=== PATIENT | female | born 1970 | race Caucasian/White ===

== ENCOUNTER 2020-10-29 07:40 | Emergency (ER) | payer OTHER, MEDICAID, SELFPAY ==
--- NOTE | ~2020-10-29 | XR_ITS ---
EXAMINATION: XR ABDOMEN KUB CLINICAL INDICATION: Constipation COMPARISON: Abdominal CT scan of March 06, 2017 TECHNIQUE: AP view of the abdomen. FINDINGS: No dilated loops of large or small bowel are evident. No significant stool burden is identified with moderate amount of stool seen within the transverse colon and right colon.. Lap band seen in place. The angle of the lap band is difficult to assess due to the angle of the image. No significant bony abnormality is appreciated. XR/XR KUB IMPRESSION: No significant stool burden appreciated. No evidence of ileus or obstruction.
[2020-10-29 09:06] VITALS: BP 129/84; PULSE 106; RESP 18; TEMP 37.1; O2SAT 98; BMI 25.2
--- NOTE | 2020-10-29 09:38 | ED_ITS ---
HPI - Abdominal Pain General Chief Complaint: Abdominal Pain Stated Complaint: constipation Time Seen by Provider: 10/29/20 09:38 Source: patient Mode of arrival: ambulatory Limitations: no limitations History of Present Illness HPI narrative: Last week she was constipated for a week, she took ecslax with some improvement. Still vomiting. patient still feeling like she can't eat and she feels weak. patient with lower back pain. patient had gastric lap band. CT of abdomen 10/17 done at [facility] showed no masses or dilated colon MD elicited complaint: abdominal pain Pertinent past history: constipation Onset (ago): day(s) Pain Consistency: constant Severity: moderate Quality: cramping Radiation: none Migration to: no migration Associated symptoms: nausea and vomiting Related Data Allergies Allergy/AdvReac Type Severity Reaction Status Date / Time prednisone Allergy Unknown severe Uncoded 10/29/20 09:05 headache sunflower seeds Allergy Unknown oral Uncoded 10/29/20 09:05 swelling Review of Systems Constitutional: Reports no additional constitutional complaints Eyes: Reports no additional eye complaints Denies dizziness Cardiovascular: Reports no additional cardiovascular complaints Respiratory: Reports as per HPI Gastrointestinal: Reports no additional gastrointestinal complaints Genitourinary: Reports no additional female genitourinary complaints Musculoskeletal: Reports no additional musculoskeletal complaints Skin/Breast: Denies rash Reports system reviewed and no additional complaints, except as documented, Denies dizziness and Denies Sensory deficit (Neuro) Psychiatric: Denies anxiety Physical Exam Vital Signs: Vital Signs: Last Vital Signs Temp 98.3 F 10/29/20 10:37 Pulse 83 10/29/20 10:37 Resp 18 10/29/20 09:06 BP 120/84 10/29/20 10:37 Pulse Ox 99 10/29/20 10:37 Body Mass Index 25.2 Const: General: healthy appearing Nutritional Appearance: average body habitus Orientation/consciousness: oriented to person and patient oriented x3 Limitations: no limitations HENMT: Head: Yes normal to inspection Ears: external ears normal General nose exam: Normal external nose present Mouth: Normal oral and palatal mucosa present and oropharynx normal Throat: Yes posterior oropharynx normal Eyes: General: appearance normal, both eyes and all related structures Neck: Other: supple Neck: Yes normal visual inspection Chest: Chest palpation & inspection: normal inspection of the chest Resp: Auscultation: clear to auscultation bilaterally Cardio: Jugular venous distension: no JVD Rate: regular rate Rhythm: regular rhythm Heart sounds: S1 normal heart sound present and S2 normal heart sound present GI: Inspection: Yes normal to inspection Palpation (GI): Soft to palpation, nontender and No hepatosplenomegaly present Auscultation: normal bowel sounds : General: Yes no CVA tenderness Back/Spine/Pelvis: Back: no CVA tenderness Skin: General skin exam: no rashes or lesions noted Neuro: General: oriented to person and patient oriented x3 Cranial nerves: Yes CN's II-XII intact bilaterally Motor exam (neuro): 5/5 motor strength present throughout Sensory Exam: No Sensory deficit (Neuro) Extrem: General: Yes normal to inspection Psych: Appearance: grossly normal Course Reevaluation(s) Reevaluation #1: sugar is down. Will feed patient Time: 11:21 Reevaluation #2: repeat sugar 185 will dc home Time: 15:27 MDM - Abdominal Pain Lab Data Result diagrams: 10/29/20 10:23 10/29/20 10:23 Labs: Lab Results 10/29/20 10/29/20 10/29/20 Range/Units 10:23 10:23 13:25 WBC 6.9 (4.8-10.8) X10*3/uL RBC 5.59 H (4.20-5.50) X10*6/uL Hgb 16.0 (12.0-16.0) g/dl Hct 49.1 H (37-47) % MCV 87.8 (80-98) fL MCH 28.6 (27.0-33.0) pg MCHC 32.6 (31.0-35.0) g/dl RDW 13.3 (11.0-16.0) % Plt Count 333 (160-400) X10*3/uL MPV 9.8 (9.4-12.3) fL Immature Gran % (Auto) 0.3 (0.0-0.4) % Neut % (Auto) 62.9 (45-73) % Lymph % (Auto) 26.9 (20-40) % [place] % (Auto) 6.8 (2-11) % Eos % (Auto) 1.6 (0-4) % Baso % (Auto) 1.5 (0-2) % Lymph # (Auto) 1.9 (1.2-4.9) X10*3/uL [place] # (Auto) 0.5 (0.1-1.2) X10*3/uL Eos # (Auto) 0.1 (0.0-0.4) X10*3/uL Baso # (Auto) 0.1 (0.0-0.2) X10*3/uL Abs Immat Gran (auto) 0.02 (0.00-0.03) X10*3/uL Absolute Neuts (auto) 4.3 (2.0-8.3) X10*3/uL Absolute Nucleated RBC 0.000 (0.0-0.012) X10*3/uL Nucleated RBC % (auto) 0.0 (0.0-0.2) /100WBC Sodium 139 (135-145) mmol/L Potassium 4.5 (3.3-5.1) mmol/L Chloride 105 (96-108) mmol/L Carbon Dioxide 18 L (22-29) mmol/L Anion Gap 21 H (12-20) BUN 12 (9-16) mg/dL Creatinine 0.98 (0.5-1.4) mg/dL Estim Creat Clear Calc 59.0 Estimated GFR 60 POC Glucose 45 L* (60-115) mg/dL Random Glucose 57 L* (60-115) mg/dL Calcium 9.6 (8.4-10.2) mg/dL Total Bilirubin 0.5 (0.0-1.0) mg/dL Direct Bilirubin 0.3 (0.0-0.5) mg/dL AST 17 (5-31) U/L ALT 11 (0-31) U/L Alkaline Phosphatase 73 (39-117) U/L Total Protein 7.6 (6.5-8.0) g/dL Albumin 4.7 (3.5-5.0) g/dL Lipase 21 (8-78) U/L 10/29/20 10/29/20 Range/Units 14:11 15:21 WBC (4.8-10.8) X10*3/uL RBC (4.20-5.50) X10*6/uL Hgb (12.0-16.0) g/dl Hct (37-47) % MCV (80-98) fL MCH (27.0-33.0) pg MCHC (31.0-35.0) g/dl RDW (11.0-16.0) % Plt Count (160-400) X10*3/uL MPV (9.4-12.3) fL Immature Gran % (Auto) (0.0-0.4) % Neut % (Auto) (45-73) % Lymph % (Auto) (20-40) % [place] % (Auto) (2-11) % Eos % (Auto) (0-4) % Baso % (Auto) (0-2) % Lymph # (Auto) (1.2-4.9) X10*3/uL [place] # (Auto) (0.1-1.2) X10*3/uL Eos # (Auto) (0.0-0.4) X10*3/uL Baso # (Auto) (0.0-0.2) X10*3/uL Abs Immat Gran (auto) (0.00-0.03) X10*3/uL Absolute Neuts (auto) (2.0-8.3) X10*3/uL Absolute Nucleated RBC (0.0-0.012) X10*3/uL Nucleated RBC % (auto) (0.0-0.2) /100WBC Sodium (135-145) mmol/L Potassium (3.3-5.1) mmol/L Chloride (96-108) mmol/L Carbon Dioxide (22-29) mmol/L Anion Gap (12-20) BUN (9-16) mg/dL Creatinine (0.5-1.4) mg/dL Estim Creat Clear Calc Estimated GFR POC Glucose 185 H 184 H (60-115) mg/dL Random Glucose (60-115) mg/dL Calcium (8.4-10.2) mg/dL Total Bilirubin (0.0-1.0) mg/dL Direct Bilirubin (0.0-0.5) mg/dL AST (5-31) U/L ALT (0-31) U/L Alkaline Phosphatase (39-117) U/L Total Protein (6.5-8.0) g/dL Albumin (3.5-5.0) g/dL Lipase (8-78) U/L Imaging Data Abdominal x-ray: Radiologist's impression: IMPRESSION: No significant stool burden appreciated. ? No evidence of ileus or obstruction. ? Discharge Plan Discharge Clinical Impression: Hypoglycemia Patient Disposition: Home, Self-Care Instructions: Non-diabetic Hypoglycemia (ED) Referrals: Physician,Unknown [Physician] - 5 days [facility] Social History Social History Advance Directives: No Advance Directives Information Provided: No Patient : No
[2020-10-29 10:30] LABS: MANUAL DIFF FLAG NO
[2020-10-29 10:31] LABS: Basophils Absolute Auto 0.1 X10*3/uL (0.0-0.2); Basophils Percent Auto 1.5 % (0-2); Eosinophils Absolute Auto 0.1 X10*3/uL (0.0-0.4); Eosinophils Percent Auto 1.6 % (0-4); Hematocrit 49.1 % (37-47); Imm Gran Abs Auto 0.02 X10*3/uL (0.00-0.03); Imm Gran Pct Auto 0.3 % (0.0-0.4); Lymphocytes Absolute Auto 1.9 X10*3/uL (1.2-4.9); Lymphocytes Percent Auto 26.9 % (20-40); Mean Corpuscular HGB Conc 32.6 g/dl (31.0-35.0); Mean Corpuscular Hemoglobin 28.6 pg (27.0-33.0); Mean Corpuscular Volume 87.8 fL (80-98); Mean Platelet Volume 9.8 fL (9.4-12.3); Monocytes Absolute Auto 0.5 X10*3/uL (0.1-1.2); Monocytes Percent Auto 6.8 % (2-11); Neutrophils Absolute Auto 4.3 X10*3/uL (2.0-8.3); Neutrophils Percent Auto 62.9 % (45-73); Platelet Count 333 X10*3/uL (160-400); Red Blood Count 5.59 X10*6/uL (4.20-5.50); Red Cell Distribution Width 13.3 % (11.0-16.0); White Blood Count 6.9 X10*3/uL (4.8-10.8)
[2020-10-29 10:37] VITALS: BP 120/84; PULSE 83; TEMP 36.8; O2SAT 99
[2020-10-29] MEDS: 0.9 % Sodium Chloride 1,000 ML 999 ML IVCONT ×2 (10:48→11:11)
[2020-10-29] MEDS: Acetaminophen 325 MG TABLET 975 MG PO (11:09)
[2020-10-29 11:10] LABS: Alanine Aminotransferase 11 U/L (0-31); Albumin Level 4.7 g/dL (3.5-5.0); Alkaline Phosphatase 73 U/L (39-117); Anion Gap 21 (12-20); Aspartate Amino Transferase 17 U/L (5-31); Bilirubin Direct 0.3 mg/dL (0.0-0.5); Bilirubin Total 0.5 mg/dL (0.0-1.0); Blood Urea Nitrogen 12 mg/dL (9-16); Calcium 9.6 mg/dL (8.4-10.2); Carbon Dioxide 18 mmol/L (22-29); Chloride 105 mmol/L (96-108); Estimated Glomerular Filt Rate 60; Glucose Random 57 mg/dL (60-115); Lipase 21 U/L (8-78); Potassium 4.5 mmol/L (3.3-5.1); Sodium 139 mmol/L (135-145); Total Protein 7.6 g/dL (6.5-8.0)
[2020-10-29 13:29] LABS: Glucose, Whole Blood 45 mg/dL (60-115)
[2020-10-29 14:15] LABS: Glucose, Whole Blood 185 mg/dL (60-115)
[2020-10-29 15:27] LABS: Glucose, Whole Blood 184 mg/dL (60-115)
== END 2020-10-29 15:56 | disposition home or self-care (01) ==
PROVIDERS: Emergency Provider Emergency Medicine; PCP Hospitalist
DX: E16.2 Hypoglycemia, unspecified (principal); R10.9 Unspecified abdominal pain; K59.00 Constipation, unspecified; Z79.899 Other long term (current) drug therapy
CPT/HCPCS: 36415; 74018; 80048; 80076; 82947; 83690; 85025; 96361; 96374; 96375; 99284; J2405

== ENCOUNTER 2021-03-23 07:01 | Emergency (ER) | payer OTHER, SELFPAY ==
--- NOTE | ~2021-03-23 | XR_ITS ---
EXAMINATION: XR SACROILIAC JOINTS CLINICAL INFORMATION: Pain in the left SI joint COMPARISON: Abdominal x-ray October 2020 TECHNIQUE: 3 views of the sacroiliac joints FINDINGS: Bones and soft tissues are normal. No fracture. Alignment is anatomic. Sacroiliac joint spaces are well-maintained without erosions or surrounding sclerosis. XR/XR sacroiliac joint 1-2V IMPRESSION: Normal sacroiliac joints.
[2021-03-23 07:18] VITALS: BP 125/67; PULSE 99; RESP 18; TEMP 36.3; O2SAT 98; BMI 25.6
[2021-03-23 07:59] LABS: COVID-19 Test Negative (Negative)
--- NOTE | 2021-03-23 08:31 | ED.BACK ---
HPI - Back Pain/Injury General Chief Complaint: Back Pain/Injury Stated Complaint: L LOWER BACK PAIN Time Seen by Provider: 03/23/21 08:27 Source: patient Mode of arrival: ambulatory Limitations: no limitations History of Present Illness HPI Narrative: 50-year-old female otherwise healthy came in for evaluation of left low back pain. Pain is localized to the left lower back area, started 3-4 days ago, no known injury, patient also declined any dysuria or frequent urination. No fever, no recent strenuous activity. Patient woke up with the pain 4 days ago which is localized to the left lower back, with no radiation, pain is exacerbated by movement, pain is improved with rest. Never had this pain in the past. Related Data Previous Rx's Medication Instructions Recorded nitrofurantoin 100 mg PO BID #14 cap 03/23/21 monohydrate/macrocrystals 100 mg capsule (Macrobid) Allergies Allergy/AdvReac Type Severity Reaction Status Date / Time prednisone Allergy Unknown severe Uncoded 03/23/21 07:17 headache sunflower seeds Allergy Unknown oral Uncoded 03/23/21 07:17 swelling Review of Systems Review of Systems: All other systems are reviewed and are negative Constitutional: Reports as per HPI and Reports no additional constitutional complaints Eyes: Reports as per HPI and Reports no additional eye complaints Reports system reviewed and no additional complaints, except as documented Cardiovascular: Reports as per HPI and Reports no additional cardiovascular complaints Respiratory: Reports as per HPI and Reports no additional respiratory complaints Gastrointestinal: Reports as per HPI and Reports no additional gastrointestinal complaints Genitourinary: Reports no additional female genitourinary complaints Musculoskeletal: Reports no additional musculoskeletal complaints Skin/Breast: Reports system reviewed and no additional complaints, except as docu Psychiatric: Reports no additional psychiatric complaints Endocrine: Reports no additional endocrine complaints Hematologic/Lymphatic: Reports no additional hematologic/lymphatic complaints Allergic/Immunologic: Reports no additional allergic/immunologic complaints Reports system reviewed and no additional complaints, except as documented and Reports Abnormal speech present [facility] Social History Social History Advance Directives: No Advance Directives Information Provided: Yes Physical Exam Vital Signs: Vital Signs: Last Vital Signs Temp 97.3 F 03/23/21 07:18 Pulse 99 03/23/21 07:18 Resp 18 03/23/21 07:18 BP 125/67 03/23/21 07:18 Pulse Ox 98 03/23/21 07:18 BMI result Body Mass Index 25.6 Vital signs have been reviewed as appeared to be correct. Blood pressure normal. Heart rate normal. Respiration rate normal. Temperature normal. Oxygen saturation normal. Appearance: Alert. Oriented X3. No acute distress. Head: Normal external exam. Normocephalic. Atraumatic. No [place] signs noted. No raccoon eyes noted Eyes: PERRLA. EOMI. Conjunctiva and sclera normal. Eyelids normal. ENT: TM's Normal. Pharynx normal. Uvula midline. Moist mucous membranes. No trismus noted. No drooling noted. No muffled voice noted. Neck: Normal inspection. Neck supple. FROM. No adenopathy. Thyroid Normal. No meningeal signs. No neck mass noted. CVS: Normal heart rate and rhythm. Heart sound normal. No murmurs noted. Pulses normal throughout. Respiratory: No respiratory distress. Painless inspiration. Breath sounds normal. No wheezes/rales/rhonchi noted. Chest nontender. No accessory muscle usage noted or decreased air movement noted. Abdomen: Soft and nontender. Bowel sounds normal in all 4 quadrants. No distention noted. No organomegaly noted. No visible injury noted. Back: Pain is localized over left SI joint, no step-off, no deformity. CVA tenderness. Full range of motion noted. Skin: Skin warm and dry. Normal skin color. Normal skin turgor. No rashes/lesions/lacerations noted. Extremities: No lower extremity edema. Extremities exhibit normal range of motion. Extremities nontender. Neuro: Oriented X 3. Cranial nerve exam: II-XII are grossly intact No motor deficit. No sensory deficit. Reflexes normal. Course Course Course Narrative: Assessment and plan. 50-year-old female came in for evaluation of left lower back pain, physical exam is consistent with left sacroiliitis. Will recommend heating pad, rest, NSAIDs, follow-up with ortho. Patient also have infected urine on the urine analysis will start the patient on Macrobid for 1 week with encouraged to drink plenty of fluids. MDM - Back Pain/Injury Medical Records Attestation: I reviewed the patient's medical records. Lab Data Attestation: I reviewed the patient's lab results. Labs: Lab Results 03/23/21 03/23/21 03/23/21 Range/Units 07:33 08:54 08:54 Urine Color YELLOW Urine Appearance HAZY Urine pH 5.5 (5.0-8.0) Ur Specific [place] >= 1.030 H (1.005-1.025) Urine Protein TRACE (NEG-TRACE) MG/DL Urine Glucose (UA) NEG (NEG) MG/DL Urine Ketones 5 (NEG) MG/DL Urine Blood NEG (NEG) Urine Nitrite NEG (NEG) Ur Leukocyte Esterase 1+ H (NEG) Urine RBC 0-2 (0) /HPF Urine WBC 10-14 H (0-4) /HPF Ur Squamous Epith Cells 2+ /LPF Urine Bacteria TRACE /LPF Urine Mucus 3+ /LPF Urine Test NEGATIVE (NEGATIVE) COVID-19 ([facility]NALIA) Negative (Negative) COVID-19 Clin Com See Note Discharge Plan Discharge Clinical Impression: Sacroiliitis, Urinary tract infection Patient Disposition: Home, Self-Care Instructions: Urinary Tract Infection in Women (ED), Sacroiliitis (ED) Additional Instructions: Wrist, heating pad to the left low back, ibuprofen/or Advil 200 mg tablet every 6 hours if needed for pain. Follow-up with our orthopedic clinic Dr. Guevara. Prescriptions: New nitrofurantoin monohyd/m-cryst [Macrobid] 100 mg capsule 100 mg PO BID Qty: 14 RF: 0 Referrals: Dav Guevara MD [Physician] - 1 week
[2021-03-23 09:20] LABS: Appearance Urine HAZY; Color Urine YELLOW; Glucose Urine UA NEG (NEG); Leukocyte Esterase Urine 1+ (NEG); Nitrite Urine NEG (NEG); PH 5.5 (5.0-8.0); Specific Gravity - Urine >= 1.030 (1.005-1.025); UACC Culture Trigger YES; Urine Blood NEG (NEG); Urine Ketones 5 MG/DL (NEG); Urine Protein TRACE MG/DL (NEG-TRACE)
[2021-03-23 09:22] LABS: UPreg QC Valid YES; Urine Pregnancy NEGATIVE (NEGATIVE)
[2021-03-23 09:28] LABS: Mucus Urine 3+ /LPF; Squamous Epithelial Cell Urine 2+ /LPF
[2021-03-23 09:29] LABS: Bacteria Urine TRACE /LPF; RBC Urine 0-2 /HPF (0)
== END 2021-03-23 10:07 | disposition home or self-care (01) ==
PROVIDERS: Emergency Provider Emergency Medicine; PCP Hospitalist
DX: M46.1 Sacroiliitis, not elsewhere classified (principal); N39.0 Urinary tract infection, site not specified; M54.50 Low back pain, unspecified; Z20.822 Contact with and (suspected) exposure to COVID-19; Z79.899 Other long term (current) drug therapy
CPT/HCPCS: 36415; 72200; 81001; 81025; 87086; 87635; 99283

== ENCOUNTER 2021-06-16 13:36 | Emergency (ER) | payer OTHER, SELFPAY ==
--- NOTE | ~2021-06-16 | CT_ITS ---
EXAMINATION: CT ABDOMEN AND PELVIS WITH CONTRAST CLINICAL INFORMATION: Repeated bouts of hypoglycemia. COMPARISON: CT of the abdomen and pelvis done on 03/06/2017. TECHNIQUE: Multidetector volumetric images were obtained from the superior aspect of the liver through the pubic symphysis following administration 85 mL of Omnipaque 350 intravenous contrast. Sagittal and coronal reformatted images were obtained on the technologist's workstation. Oral contrast: No This CT examination was performed using dose optimization techniques as appropriate, variously including the following: *Automated exposure control *Adjustment of mA and/or kV according to patient size (this includes techniques or standardized protocols for targeted exams where dose is matched to indication/reason for exam; i.e. extremities or head) *Use of iterative reconstruction technique DLP: 463 mGy-cm FINDINGS: LUNG BASES: Solitary sub-5 mm subpleural noncalcified lung nodule is noted within the right lower lobe posteromedially (17:4), new since prior study, not optimally characterized. LIVER, GALLBLADDER, AND BILIARY TREE: There are multiple scattered sub-5 mm hypodensities noted throughout both lobes of the liver. 2 lesions seen within the right lobe appear to be stable. The remainder of the lesions are new however, too small for accurate characterization. Christine-fissural hypodensity consistent with focal fatty infiltration is also noted around the falciform ligament. The gallbladder is unremarkable with no evidence of radiopaque gallstones, gallbladder wall thickening, or obvious pericholecystic inflammatory changes. PANCREAS: Unremarkable. SPLEEN: Unremarkable. ADRENAL GLANDS: Unremarkable. KIDNEYS AND URETERS: The kidneys are normal in size, shape, and attenuation. No hydronephrosis, hydroureter, or calculi seen. No perinephric stranding. BLADDER: Unremarkable. GASTROINTESTINAL TRACT: The small and large bowel are unremarkable, except for incidental colonic diverticulosis without any CT features of superimposed acute diverticulitis. The appendix is unremarkable. ABDOMINAL WALL: Previously documented gastric lap band has been removed in the interim. Residual scar tissue is noted at the site of the device within the mid anterior abdominal wall. LYMPH NODES: Normal. VASCULAR: Mild diffuse atherosclerotic disease of the aorta and is branches without aneurysm formation. PELVIC VISCERA: There is no pelvic mass present. No evidence of any free fluid and/or free air. OSSEOUS STRUCTURES: No suspicious focal lesion. CT/CT abdomen pelvis w con IMPRESSION: 1. Solitary sub-5 mm subpleural noncalcified lung nodule is noted within the right lower lobe posteromedially, new since most recent prior study dated 03/06/2017, indeterminate etiology. 2. Multiple scattered sub-5 mm hypodensities are noted throughout both lobes of the liver. 2 of these lesions seen within the right lobe appear to be stable, the remainder are new, too small for accurate characterization. 3. Interval removal of gastric lap band and evidence of stable colonic diverticulosis. 4. No CT evidence of any pancreatic mass or pancreatic pathology identified on this nondedicated study. Follow-up nonemergent multiphasic pre and postcontrast MRI of the pancreas may be considered for further full detail evaluation if focal pancreatic pathology is clinically suspected. According to the UPDATED 2017 Fleischner Society recommendations, the advised follow-up imaging for solid nodules < 6 mm is: LOW RISK PATIENT: No routine follow-up. HIGH RISK PATIENT: Optional CT at 12 months. Fleischner guidelines were followed.
[2021-06-16 13:59] LABS: Glucose, Whole Blood 73 mg/dL (60-115)
[2021-06-16 14:02] VITALS: BP 115/77; BP 138/88; PULSE 84; PULSE 90; RESP 16; TEMP 37.1; O2SAT 100; O2SAT 99; BMI 25.2
--- NOTE | 2021-06-16 14:13 | ED_ITS ---
HPI - General Adult General Chief complaint: Recheck/Abnormal Lab/Rx Stated complaint: HYPOGLYCEMIA Time Seen by Provider: 06/16/21 14:05 Source: patient Mode of arrival: EMS Limitations: no limitations History of Present Illness HPI narrative: BS 57 at home 69 with EMS and 72 here in ED lap band removed 05/09 notes about a week ago BS down into 50s at home, she notes she has been eating at home today had nuts and cheese at 7am, ball and eggs at 10am, went to make a salad and felt shaky with her HR up and BS in 50s. states her doctor just marisol blood work and she has to wait to see an predatory game hunter in 2 months. Her beta hydroxybutarate was the only thing elevated of labs MD complaint: BS in 50s Onset (ago): week(s) (1) Severity: moderate Quality: other (shakiness and feels weakness, palpitations) Relieving factors: eating Exacerbating factors: none Associated symptoms: other (feels better now but HR goes up and feels palp itations) Treatments prior to arrival: other (food) Related Data Previous Rx's Medication Instructions Recorded nitrofurantoin 100 mg PO BID #14 cap 03/23/21 monohydrate/macrocrystals 100 mg capsule (Macrobid) Allergies Allergy/AdvReac Type Severity Reaction Status Date / Time prednisone Allergy Unknown severe Uncoded 03/23/21 07:17 headache sunflower seeds Allergy Unknown oral Uncoded 03/23/21 07:17 swelling Review of Systems Review of Systems: Constitutional : No Weight loss, No Fever, No Chills, No Fatigue, No Malaise ENT/Mouth : No sore throat, No Rhinorrhea Eyes: No Eye Pain, No Swelling, No Redness Cardiovascular : No Chest Pain, No SOB, No Dyspnea on Exertion, No Orthopnea, No Edema, pos Palpitations Respiratory : No Cough, No Sputum, No Wheezing Gastrointestinal : No Nausea, No Vomiting, No Diarrhea, No Constipation, No abdominal Pain, No Hematochezia, No Melena Genitourinary : No Dysuria, No Urinary Frequency, No Hematuria, Musculoskeletal : No joint pain, No Myalgias, No Joint Swelling Skin : No Skin Lesions, No rash Neuro : pos Weakness, No Numbness, No Dizziness, No Headache, pos insomnia Psych : No Anxiety/Panic, No Depression Heme/Lymph: No Bruising, No Bleeding,No Lymphadenopathy Endocrine : No Polyuria, No Polydipsia All other systems reviewed and are negative [facility] Past Medical History Attestation statement: The following information was validated with the patient. Medical History Anxiety Obesity UTI (urinary tract infection) Surgical History Hx of laparoscopic gastric banding Social History Social History Patient Tobacco Use Status: Current everyday Tobacco user Advance Directives: No Physical Exam ED Vital Signs: Vital Signs - 24 hr 06/16/21 14:02 Temperature 98.8 F Pulse Rate 90 Respiratory Rate 16 Blood Pressure 115/77 Pulse Oximetry 100 BMI result Body Mass Index 25.2 Appearance: Alert. Oriented X3. No acute distress. Eyes: Pupils equal, round and reactive to light. ENT: Pharynx normal. Neck: Normal inspection. Neck supple. CVS: Normal heart rate and rhythm. Pulses normal. Respiratory: No respiratory distress. Breath sounds normal. Abdomen: Soft and non-tender. Skin: Skin warm and dry. Normal skin color. Normal skin turgor. Extremities: No lower extremity edema. No calf ttp Neuro: Oriented X 3. No motor deficit. No sensory deficit. Course Course Course Narrative: signed out to Suze [employer] PROF[employer] pending CT scan Medical Decision Making MDM Narrative Medical decision making narrative: 51 yo female with recent bouts of low blood sugar not on oral DM agents or any form of insulin. No other symptoms - at this time labs ordered and CT scan for pancreatic mass ordered. Dispo per results and findings. Lab Data Result diagrams: 06/16/21 14:33 06/16/21 14:33 Labs: Lab Results 06/16/21 06/16/21 06/16/21 Range/Units 13:56 14:33 14:33 WBC 5.7 (4.8-10.8) X10*3/uL RBC 4.87 (4.20-5.50) X10*6/uL Hgb 14.3 (12.0-16.0) g/dl Hct 44.0 (37.0-47.0) % MCV 90.3 (80.0-98.0) fL MCH 29.4 (27.0-33.0) pg MCHC 32.5 (31.0-35.0) g/dl RDW 13.0 (11.0-16.0) % Plt Count 279 (160-400) X10*3/uL MPV 10.4 (9.4-12.3) fL Immature Gran % (Auto) 0.4 (0.0-0.4) % Neut % (Auto) 54.7 (45-73) % Lymph % (Auto) 31.4 (20-40) % [place] % (Auto) 8.7 (2-11) % Eos % (Auto) 3.0 (0-4) % Baso % (Auto) 1.8 (0-2) % Lymph # (Auto) 1.8 (1.2-4.9) X10*3/uL [place] # (Auto) 0.5 (0.1-1.2) X10*3/uL Eos # (Auto) 0.2 (0.0-0.4) X10*3/uL Baso # (Auto) 0.1 (0.0-0.2) X10*3/uL Abs Immat Gran (auto) 0.02 (0.00-0.03) X10*3/uL Absolute Neuts (auto) 3.1 (2.0-8.3) x10*3/uL Absolute Nucleated RBC 0.000 (0.0-0.012) X10*3/uL Nucleated RBC % (auto) 0.0 (0.0-0.2) /100WBC Sodium 140 (135-145) mmol/L Potassium 4.2 (3.3-5.1) mmol/L Chloride 102 (96-108) mmol/L Carbon Dioxide 25 (22-29) mmol/L Anion Gap 17 (12-20) BUN 10 (9-16) mg/dL Creatinine 0.78 (0.5-1.4) mg/dL Estim Creat Clear Calc 73.4 Estimated GFR > 60 POC Glucose 73 (60-115) mg/dL Random Glucose 68 (60-115) mg/dL Calcium 9.5 (8.4-10.2) mg/dL Magnesium 2.1 (1.6-2.6) mg/dL Total Bilirubin 0.5 (0.0-1.0) mg/dL Direct Bilirubin 0.2 (0.0-0.5) mg/dL AST 18 (5-31) U/L ALT 17 (0-31) U/L Alkaline Phosphatase 69 (39-117) U/L Total Protein 6.8 (6.5-8.0) g/dL Albumin 4.3 (3.5-5.0) g/dL Urine Color Urine Appearance Urine pH (5.0-8.0) Ur Specific [place] (1.005-1.025) Urine Protein (NEG-TRACE) MG/DL Urine Glucose (UA) (NEG) MG/DL Urine Ketones (NEG) MG/DL Urine Blood (NEG) Urine Nitrite (NEG) Ur Leukocyte Esterase (NEG) Urine RBC (0) /HPF Urine WBC (0-4) /HPF Ur Squamous Epith Cells /LPF Urine Bacteria /LPF Urine Mucus /LPF 06/16/21 Range/Units 14:33 WBC (4.8-10.8) X10*3/uL RBC (4.20-5.50) X10*6/uL Hgb (12.0-16.0) g/dl Hct (37.0-47.0) % MCV (80.0-98.0) fL MCH (27.0-33.0) pg MCHC (31.0-35.0) g/dl RDW (11.0-16.0) % Plt Count (160-400) X10*3/uL MPV (9.4-12.3) fL Immature Gran % (Auto) (0.0-0.4) % Neut % (Auto) (45-73) % Lymph % (Auto) (20-40) % [place] % (Auto) (2-11) % Eos % (Auto) (0-4) % Baso % (Auto) (0-2) % Lymph # (Auto) (1.2-4.9) X10*3/uL [place] # (Auto) (0.1-1.2) X10*3/uL Eos # (Auto) (0.0-0.4) X10*3/uL Baso # (Auto) (0.0-0.2) X10*3/uL Abs Immat Gran (auto) (0.00-0.03) X10*3/uL Absolute Neuts (auto) (2.0-8.3) x10*3/uL Absolute Nucleated RBC (0.0-0.012) X10*3/uL Nucleated RBC % (auto) (0.0-0.2) /100WBC Sodium (135-145) mmol/L Potassium (3.3-5.1) mmol/L Chloride (96-108) mmol/L Carbon Dioxide (22-29) mmol/L Anion Gap (12-20) BUN (9-16) mg/dL Creatinine (0.5-1.4) mg/dL Estim Creat Clear Calc Estimated GFR POC Glucose (60-115) mg/dL Random Glucose (60-115) mg/dL Calcium (8.4-10.2) mg/dL Magnesium (1.6-2.6) mg/dL Total Bilirubin (0.0-1.0) mg/dL Direct Bilirubin (0.0-0.5) mg/dL AST (5-31) U/L ALT (0-31) U/L Alkaline Phosphatase (39-117) U/L Total Protein (6.5-8.0) g/dL Albumin (3.5-5.0) g/dL Urine Color YELLOW Urine Appearance CLEAR Urine pH 5.5 (5.0-8.0) Ur Specific [place] 1.020 (1.005-1.025) Urine Protein NEG (NEG-TRACE) MG/DL Urine Glucose (UA) NEG (NEG) MG/DL Urine Ketones >=80 (NEG) MG/DL Urine Blood NEG (NEG) Urine Nitrite NEG (NEG) Ur Leukocyte Esterase 1+ H (NEG) Urine RBC 0 (0) /HPF Urine WBC 1-4 (0-4) /HPF Ur Squamous Epith Cells 1+ /LPF Urine Bacteria TRACE /LPF Urine Mucus TRACE /LPF Discharge Plan Discharge Clinical Impression: Low blood sugar Prescriptions: No Action nitrofurantoin monohyd/m-cryst [Macrobid] 100 mg capsule 100 mg PO BID Qty: 14 0RF Rx Instructions: must administer with a meal/food
[2021-06-16 14:39] LABS: Appearance Urine CLEAR; Color Urine YELLOW; Glucose Urine UA NEG (NEG); Leukocyte Esterase Urine 1+ (NEG); MANUAL DIFF FLAG NO; Nitrite Urine NEG (NEG); PH 5.5 (5.0-8.0); UACC Culture Trigger YES; Urine Blood NEG (NEG); Urine Ketones >=80 MG/DL (NEG); Urine Protein NEG (NEG-TRACE)
[2021-06-16 14:41] LABS: Basophils Absolute Auto 0.1 X10*3/uL (0.0-0.2); Basophils Percent Auto 1.8 % (0-2); Eosinophils Absolute Auto 0.2 X10*3/uL (0.0-0.4); Hemoglobin 14.3 g/dl (12.0-16.0); Imm Gran Abs Auto 0.02 X10*3/uL (0.00-0.03); Imm Gran Pct Auto 0.4 % (0.0-0.4); Lymphocytes Absolute Auto 1.8 X10*3/uL (1.2-4.9); Lymphocytes Percent Auto 31.4 % (20-40); Mean Corpuscular HGB Conc 32.5 g/dl (31.0-35.0); Mean Corpuscular Hemoglobin 29.4 pg (27.0-33.0); Mean Corpuscular Volume 90.3 fL (80.0-98.0); Mean Platelet Volume 10.4 fL (9.4-12.3); Monocytes Absolute Auto 0.5 X10*3/uL (0.1-1.2); Monocytes Percent Auto 8.7 % (2-11); Neutrophils Absolute Auto 3.1 x10*3/uL (2.0-8.3); Neutrophils Percent Auto 54.7 % (45-73); Platelet Count 279 X10*3/uL (160-400); Red Blood Count 4.87 X10*6/uL (4.20-5.50); White Blood Count 5.7 X10*3/uL (4.8-10.8)
[2021-06-16 14:51] LABS: Bacteria Urine TRACE /LPF; Mucus Urine TRACE /LPF; RBC Urine 0 /HPF (0); Squamous Epithelial Cell Urine 1+ /LPF
[2021-06-16 14:58] LABS: Alanine Aminotransferase 17 U/L (0-31); Albumin Level 4.3 g/dL (3.5-5.0); Alkaline Phosphatase 69 U/L (39-117); Anion Gap 17 (12-20); Aspartate Amino Transferase 18 U/L (5-31); Bilirubin Direct 0.2 mg/dL (0.0-0.5); Bilirubin Total 0.5 mg/dL (0.0-1.0); Blood Urea Nitrogen 10 mg/dL (9-16); Calcium 9.5 mg/dL (8.4-10.2); Carbon Dioxide 25 mmol/L (22-29); Chloride 102 mmol/L (96-108); Creatinine Clr Calc Pharmacy 73.4; Estimated Glomerular Filt Rate > 60; Glucose Random 68 mg/dL (60-115); Magnesium 2.1 mg/dL (1.6-2.6); Potassium 4.2 mmol/L (3.3-5.1); Sodium 140 mmol/L (135-145); Total Protein 6.8 g/dL (6.5-8.0)
[2021-06-16] MEDS: iohexoL 350 MG/ML 100 ML INFUS..BTL IV (16:11)
[2021-06-16 16:25] VITALS: BP 110/68; PULSE 75; RESP 18; O2SAT 99
[2021-06-16] MEDS: 0.9 % Sodium Chloride 1,000 ML 999 ML IV (16:27)
[2021-06-16 16:37] LABS: Glucose, Whole Blood 50 mg/dL (60-115)
--- NOTE | 2021-06-16 16:39 | PC.NURSE ---
Pt describes 2 weeks of persistently low glucose. Feels off with difficulty concentration, talking at times, near syncopal. Just now POC was 50, is up eating sandwich and having OJ. states pt often doesn't eat breakfast but has normal portions otherwise.
[2021-06-16 17:16] LABS: Glucose, Whole Blood 88 mg/dL (60-115)
[2021-06-16 18:39] LABS: Glucose, Whole Blood 107 mg/dL (60-115)
[2021-06-17 03:22] LABS: Estimated Average Glucose 91 mg/dL; Hemoglobin A1c % 4.8 %
== END 2021-06-16 18:40 | disposition home or self-care (01) ==
PROVIDERS: Emergency Provider Emergency Medicine; PCP Nurse Practitioner Family
DX: E16.2 Hypoglycemia, unspecified (principal); R10.9 Unspecified abdominal pain; Z79.899 Other long term (current) drug therapy
CPT/HCPCS: 36415; 74177; 80048; 80076; 81001; 82947; 83036; 83735; 85025; 87086; 99284; Q9967

== ENCOUNTER 2023-02-25 09:13 | Emergency (ER) | payer OTHER, MEDICAID, SELFPAY ==
--- NOTE | ~2023-02-25 | US_ITS ---
Examination: Ultrasound appendix. Clinical indications: Right lower quadrant pain. COMPARISON: CT abdomen pelvis 06/16/2021. TECHNIQUE: Limited imaging to the right lower quadrant was performed. FINDINGS: Appendix is not seen. There is no mass or free fluid either in the right lower quadrant. Visualized right ovary and right kidney appears unremarkable. Right ovary measures 1.10 cm in maximum dimension. There is no free fluid. US/US appendix IMPRESSION: Nonvisualization of appendix, mass or free fluid. Cannot exclude appendicitis. Correlate with clinical exam
[2023-02-25 11:07] VITALS: BP 108/69; PULSE 81; RESP 18; TEMP 36.6; O2SAT 98; BMI 31.1
--- NOTE | 2023-02-25 11:13 | ED_ITS ---
HPI - Abdominal Pain General Chief Complaint: Abdominal Pain Stated Complaint: R Side Pain ? Appendix Time Seen by Provider: 02/25/23 14:16 Source: patient Mode of arrival: ambulatory Limitations: no limitations History of Present Illness HPI narrative: Patient is a 52 year old assigned female at with no reported medical history presenting to the emergency department today with pain with urination and abdominal pain. Patient states that over the last day she has had abdominal pain and pain with urination. Patient denies any dizziness, lightheadedness, nausea, vomiting, fever, chills, blurry vision, double vision, loss of vision, chest pain, difficulty breathing, shortness of breath, back pain, night sweats, increased urinary frequency, increased urinary urgency, blood in her urine or stool, syncope or a near syncopal episode, recent trauma or falls, bowel incontinence, bladder incontinence, bowel retention, bladder retention, or any other complaints at this time. MD elicited complaint: abdominal pain Onset (ago): day(s) Pain Consistency: constant Location: diffuse Severity: mild Exacerbating factors: nothing Associated symptoms: dysuria Related Data Previous Rx's Medication Instructions Recorded nitrofurantoin 100 mg PO BID #14 caps 03/23/21 monohydrate/macrocrystals 100 mg capsule (Macrobid) cefuroxime axetil 250 mg tablet 250 mg PO BID 7 days #14 tabs 02/25/23 Allergies Allergy/AdvReac Type Severity Reaction Status Date / Time prednisone Allergy Unknown severe Uncoded 03/23/21 07:17 headache sunflower seeds Allergy Unknown oral Uncoded 03/23/21 07:17 swelling Review of Systems Constitutional: Reports no additional constitutional complaints, Denies chills, Denies fever(s) and Denies night sweats Eyes: Reports no additional eye complaints, Denies blurry vision, Denies change in vision, Denies diplopia, Denies eye discharge, Denies loss of vision and Denies eye pain Denies dizziness Cardiovascular: Reports no additional cardiovascular complaints, Denies chest pain, Denies lightheadedness, Denies Loss of Consciousness and Denies dyspnea Respiratory: Reports no additional respiratory complaints and Denies dyspnea Gastrointestinal: Reports no additional gastrointestinal complaints, Reports abdominal pain, Denies melena, Denies hematochezia, Denies change in bowel habits and Denies change in stool character Genitourinary: Denies hematuria, Denies urinary frequency, Reports dysuria, Denies urinary incontinence, Denies urinary hesitancy and Denies urinary urgency Musculoskeletal: Reports no additional musculoskeletal complaints, Denies numbness and Denies tingling Denies dizziness, Denies loss of vision, Denies numbness and Denies tingling Psychiatric: Reports no additional psychiatric complaints Endocrine: Reports no additional endocrine complaints Hematologic/Lymphatic: Reports no additional hematologic/lymphatic complaints Allergic/Immunologic: Reports no additional allergic/immunologic complaints PMFSH Past Medical History Attestation statement: The following information was validated with the patient. Source: old records reviewed and nursing notes reviewed Medical History UTI (urinary tract infection) Anxiety Obesity Surgical History Hx of laparoscopic gastric banding Social History Social History Alcohol intake: never Patient Tobacco Use Status: Current everyday Tobacco user Advance Directives: No Advance Directives Information Provided: No Physical Exam ED Vital Signs: Vital Signs - 24 hr 02/25/23 11:07 Temperature 97.8 F Pulse Rate 81 Respiratory Rate 18 Blood Pressure 108/69 Pulse Oximetry 98 Oxygen Delivery Method Room Air BMI result Body Mass Index 31.1 Const General: cooperative, no acute distress, alert and awake Nutritional Appearance: well nourished Orientation/consciousness: patient oriented x3 Limitations: no limitations [facility] Head: Yes normal to inspection and Yes atraumatic Ears: hearing grossly normal bilaterally and external ears normal General nose exam: Normal external nose present, no nasal discharge noted and no epistaxis Face and sinus: Yes normal facial exam, No abrasion and No laceration Mouth: Normal oral and palatal mucosa present, no drooling and no muffled voice Eyes General: appearance normal, both eyes and all related structures Periorbital: periorbital findings normal Eyelids: Yes eyelids normal Conjunctivae: conjunctivae normal Pupils: Equal, round and reactive pupils present EOM: EOMs intact bilaterally Neck Neck: Yes normal visual inspection, Yes full ROM and Yes no lymphadenopathy Chest Chest palpation & inspection: normal inspection of the chest Resp Effort & Inspection: normal respiratory effort and able to speak in complete sentences GI Inspection: Yes normal to inspection Palpation (GI): Soft to palpation, not firm, nontender, no guarding and not rigid Neuro General: patient oriented x3 and moves all extremities Cranial nerves: Yes Equal, round and reactive pupils present Cognition (Neuro): normal cognition Motor exam (neuro): 5/5 motor strength present throughout Sensory Exam: Normal double simultaneous stimulation for sensation Coordination: [id number] test normal Extrem General: Yes normal to inspection, Yes full ROM and Yes capillary refill normal Psych Appearance: grossly normal Mental Status: mental status grossly normal Affect: normal affect Attitude: cooperative Thought process: Normal thought process present Thought content: Normal thought content present Insight: Good insight present (Psych) Course Course Course Narrative: This is an RME: Additional HPI, ROS, PE not included below will be deferred to primary provider. This is a 52-year-old female presenting to the emergency department for evaluation of dysuria urinary frequency and urgency x4 days. She states that this morning she developed right lower quadrant pain. History of abdominal lap band, no other abdominal surgeries. Endorses nausea, no vomiting. Tenderness to palpation of the right lower quadrant and suprapubic region. Vital signs within normal limits, patient is nontoxic appearing. Plan: Will obtain labs, UA, US appendix Medical Decision Making Medical Decision Making MDM Narrative: Patient is a 52 year old assigned female at with no reported medical history presenting to the emergency department today with abdominal pain and pain with urination. Patient's physical exam was unremarkable. Patient's blood work was unremarkable. Patient's urine showed an acute UTI. Patient's appendix US was nondiagnostic as it could not visualize the appendix. I explained my physical exam findings as well as all test results to the patient. I answered all questions asked by the patient. I stressed the importance of the patient taking her medication as prescribed. I stressed the importance of the patient following up with her primary care provider. I stressed the importance of the patient returning to the emergency department immediately if her symptoms were to worsen or if she were to develop any dizziness, shortness of breath, difficulty breathing, chest pain, blurry vision, loss of vision, nausea, vomiting, abdominal pain, fever, chills, back pain, or any other complaints. Patient verbalized agreement and understanding with this treatment plan and discharge. Differential Diagnosis Differential Diagnoses: The differential diagnosis associated with the presentation includes Abdominal pain UTI Admission/Observation Consideration of admission/observation: Escalation of care including admission/observation considered Patient would have been admitted to the hospital had her work up had any findings where hospital admission was appropriate and her clinical presentation warranted hospital admission. Lab Data [facility] Lab Attestation statement: I reviewed the patient's lab results. My interpretation of these results are in the MDM Rationale portion of this note. 02/25/23 12:17 12 12:17 Labs: Lab Results 02/25/23 Range/Units 12:17 WBC 5.6 (4.8-10.8) X10*3/uL RBC 4.83 (4.20-5.50) X10*6/uL Hgb 14.7 (12.0-16.0) g/dl Hct 43.8 (37.0-47.0) % MCV 90.7 (80.0-98.0) fL MCH 30.4 (27.0-33.0) pg MCHC 33.6 (31.0-35.0) g/dl RDW 12.3 (11.0-16.0) % Plt Count 311 (160-400) X10*3/uL MPV 10.1 (9.4-12.3) fL Immature Gran % (Auto) 0.2 (0.0-0.4) % Neut % (Auto) 52.4 (45-73) % Lymph % (Auto) 35.7 (20-40) % Burt % (Auto) 8.4 (2-11) % Eos % (Auto) 2.2 (0-4) % Baso % (Auto) 1.1 (0-2) % Lymph # (Auto) 2.0 (1.2-4.9) X10*3/uL Burt # (Auto) 0.5 (0.1-1.2) X10*3/uL Eos # (Auto) 0.1 (0.0-0.4) X10*3/uL Baso # (Auto) 0.1 (0.0-0.2) X10*3/uL Abs Immat Gran (auto) 0.01 (0.00-0.03) X10*3/uL Absolute Neuts (auto) 2.9 (2.0-8.3) x10*3/uL Absolute Nucleated RBC 0.000 (0.0-0.012) X10*3/uL Nucleated RBC % (auto) 0.0 (0.0-0.2) /100WBC Sodium 143 (135-145) mmol/L Potassium 4.1 (3.3-5.1) mmol/L Chloride 109 H (96-108) mmol/L Carbon Dioxide 28 (22-29) mmol/L Anion Gap 10 L (12-20) BUN 10 (9-16) mg/dL Creatinine 0.73 (0.5-1.4) mg/dL Estim Creat Clear Calc 85.7 Estimated GFR > 60 Random Glucose 78 (60-115) mg/dL Calcium 9.2 (8.4-10.2) mg/dL Total Bilirubin 0.3 (0.0-1.0) mg/dL Direct Bilirubin 0.1 (0.0-0.5) mg/dL AST 16 (5-31) U/L ALT 13 (0-31) U/L Alkaline Phosphatase 64 (39-117) U/L Total Protein 7.2 (6.5-8.0) g/dL Albumin 4.4 (3.5-5.0) g/dL Lipase 20 (8-78) U/L Beta HCG, Quant < 2 mIU/mL Urine Color Yellow Urine Appearance Clear Urine pH 6.5 (5.0-9.0) Ur Specific [place] <= 1.005 (1.005-1.025) Urine Protein Negative (Neg-Trace) mg/dL Urine Glucose (UA) Negative (Negative) mg/dL Urine Ketones Negative (Negative) mg/dL Urine Blood Negative (Negative) Urine Nitrite Negative (Negative) Ur Leukocyte Esterase Moderate (2+) H (Negative) Urine RBC 0-2 (0-2) /HPF Urine WBC 11-20 H (0-5) /HPF Ur Squamous Epith Cells 3-5 (0-2) /HPF Urine Bacteria 1+ (None Seen) Hyaline Casts 0-2 (0-2) /LPF Independent Interpretation I performed an independent interpretation of an: Ultrasound Interpretation: My interpretation is in agreement with the radiologist's impression of this imaging study. - Examination: Ultrasound appendix. Clinical indications: Right lower quadrant pain. COMPARISON: CT abdomen pelvis 06/16/2021. TECHNIQUE: Limited imaging to the right lower quadrant was performed. FINDINGS: Appendix is not seen. There is no mass or free fluid either in the right lower quadrant. Visualized right ovary and right kidney appears unremarkable. Right ovary measures 1.10 cm in maximum dimension. There is no free fluid. US/US appendix IMPRESSION: Nonvisualization of appendix, mass or free fluid. Cannot exclude appendicitis. Correlate with clinical exam Dictated By: Abel Taveras MD Signed By: Electronically signed by Abel Taveras MD 02/25/23 0168 Radiology Impression Discussion of test interpretation with radiology: I have reviewed the radiologist's reading. Prescription Management I considered prescription management with: Antibiotic (patient prescribed an antibiotic for her UTI) Discharge Plan Discharge Clinical Impression: Urinary tract infection Patient Disposition: Home, Self-Care Instructions: Urinary Tract Infection in Women (DC) Additional Instructions: Follow up with your primary care provider. Return to the emergency department immediately if your symptoms worsen or if you develop any dizziness, shortness of breath, difficulty breathing, chest pain, blurry vision, loss of vision, nausea, vomiting, abdominal pain, fever, chills, back pain, or any other complaints. Prescriptions: New cefuroxime axetil 250 mg tablet 250 mg PO BID 7 Days Qty: 14 0RF No Action nitrofurantoin monohyd/m-cryst [Macrobid] 100 mg capsule 100 mg PO BID Qty: 14 0RF Rx Instructions: must administer with a meal/food Referrals: Gabrielle Perez NP [Primary Care Provider] - Interventions: ED Discharge Assessment Last Done: 02/25/23 15:07 Discharge Date/Time: 02/25/23 15:08 Print Language: Australian
[2023-02-25 12:21] LABS: MANUAL DIFF FLAG NO
[2023-02-25 12:24] LABS: Appearance Urine Clear; Color Urine Yellow; Glucose Urine UA Negative (Negative); Leukocyte Esterase Urine Moderate (2+) (Negative); Nitrite Urine Negative (Negative); PH 6.5 (5.0-9.0); Specific Gravity - Urine <= 1.005 (1.005-1.025); UMIC TRIGGER UACC YES; Urine Blood Negative (Negative); Urine Ketones Negative (Negative); Urine Protein Negative (Neg-Trace)
[2023-02-25 12:26] LABS: Bacteria Urine 1+ (None Seen); Basophils Absolute Auto 0.1 X10*3/uL (0.0-0.2); Basophils Percent Auto 1.1 % (0-2); Eosinophils Absolute Auto 0.1 X10*3/uL (0.0-0.4); Eosinophils Percent Auto 2.2 % (0-4); Hematocrit 43.8 % (37.0-47.0); Hemoglobin 14.7 g/dl (12.0-16.0); Hyaline Casts Urine 0-2 /LPF (0-2); Imm Gran Abs Auto 0.01 X10*3/uL (0.00-0.03); Imm Gran Pct Auto 0.2 % (0.0-0.4); Lymphocytes Percent Auto 35.7 % (20-40); Mean Corpuscular HGB Conc 33.6 g/dl (31.0-35.0); Mean Corpuscular Hemoglobin 30.4 pg (27.0-33.0); Mean Corpuscular Volume 90.7 fL (80.0-98.0); Mean Platelet Volume 10.1 fL (9.4-12.3); Monocytes Absolute Auto 0.5 X10*3/uL (0.1-1.2); Monocytes Percent Auto 8.4 % (2-11); Neutrophils Absolute Auto 2.9 x10*3/uL (2.0-8.3); Neutrophils Percent Auto 52.4 % (45-73); Platelet Count 311 X10*3/uL (160-400); RBC Urine 0-2 /HPF (0-2); Red Blood Count 4.83 X10*6/uL (4.20-5.50); Red Cell Distribution Width 12.3 % (11.0-16.0); UACC Culture Trigger YES; White Blood Count 5.6 X10*3/uL (4.8-10.8)
[2023-02-25 12:43] LABS: Alanine Aminotransferase 13 U/L (0-31); Albumin Level 4.4 g/dL (3.5-5.0); Alkaline Phosphatase 64 U/L (39-117); Anion Gap 10 (12-20); Aspartate Amino Transferase 16 U/L (5-31); Bilirubin Direct 0.1 mg/dL (0.0-0.5); Bilirubin Total 0.3 mg/dL (0.0-1.0); Blood Urea Nitrogen 10 mg/dL (9-16); Calcium 9.2 mg/dL (8.4-10.2); Carbon Dioxide 28 mmol/L (22-29); Chloride 109 mmol/L (96-108); Creatinine Clr Calc Pharmacy 85.7; Estimated Glomerular Filt Rate > 60; Glucose Random 78 mg/dL (60-115); Lipase 20 U/L (8-78); Potassium 4.1 mmol/L (3.3-5.1); Sodium 143 mmol/L (135-145); Total Protein 7.2 g/dL (6.5-8.0)
[2023-02-25 12:44] LABS: HCG Quantitative < 2 mIU/mL
== END 2023-02-25 15:08 | disposition home or self-care (01) ==
PROVIDERS: Physician Assistant Medical; Emergency Provider Emergency Medicine Emergency Medical Services; PCP Nurse Practitioner Family
DX: N39.0 Urinary tract infection, site not specified (principal); R10.31 Right lower quadrant pain; R35.0 Frequency of micturition; R39.15 Urgency of urination; R11.0 Nausea; F17.200 Nicotine dependence, unspecified, uncomplicated; F41.9 Anxiety disorder, unspecified; Z79.899 Other long term (current) drug therapy
CPT/HCPCS: 36415; 76705; 80048; 80076; 81001; 83690; 84702; 85025; 87086; 99282; 99284

== ENCOUNTER 2023-07-17 12:00 | Outpatient (AMB) | payer OTHER, SELFPAY ==
[2023-07-17 12:10] VITALS: BP 120/82; PULSE 107; TEMP 36.8; O2SAT 97; BMI 28.9
--- NOTE | 2023-07-17 12:10 | MHC.OFFWIV ---
Intake Vital Signs 07/17/23 12:10 Height 5 ft 2 in Weight 158 lb BMI 28.9 BP 120/82 Blood Pressure Location Lt brachial Position Sitting Pulse 107 H Pulse Source Pulse Oximeter Temp 98.3 F Temp Source Oral Pulse Oximetry (%) 97 Oxygen Delivery Method Room Air Intake Visit Reasons: EP UTI Intake Note: Pt presents to the office today for c/o UTI symptoms. Pt states she started with back pain on Thursday and now states she has urinary urgency. Patient Tobacco Use Status: Current everyday Tobacco user Allergies prednisone Allergy (Unknown, Uncoded 07/17/23 12:12) severe headache sunflower seeds Allergy (Unknown, Uncoded 07/17/23 12:12) oral swelling HPI EP UTI HPI Details 53 year old female patient presents today with UTI symptoms for the last several days. Reports that on Thursday, she started feeling some lower back and right lower quadrant pressure, which is typical for her when she gets UTIs. She reports urinary urgency. Denies burning. Denies vaginal symptoms. Denies any fever/chills. PFSH Medical History UTI (urinary tract infection) Anxiety Obesity Surgical History Hx of laparoscopic gastric banding Social History Alcohol intake: never Patient Tobacco Use Status: Current everyday Tobacco user Review of Systems Const All systems reviewed & are unremarkable except as noted in HPI and below Physical Exam Vital Signs: Last Vital Signs Temp 98.3 F 07/17/23 12:10 Pulse 107 H 07/17/23 12:10 BP 120/82 07/17/23 12:10 Pulse Ox 97 07/17/23 12:10 Oxygen Delivery Method Room Air 07/17/23 12:10 BMI result Body Mass Index 28.9 Const General: cooperative and no acute distress Resp Effort & Inspection: normal respiratory effort General: Yes CVA tenderness (mild, right) Back/Spine/Pelvis Back: CVA tenderness (mild, right) Skin General skin exam: no rashes or lesions noted Extrem General: Yes no clubbing, cyanosis or edema Psych Appearance: grossly normal Mental Status: mental status grossly normal Speech and movement: Normal speech and movement present Results AMB Urinalysis, Automated UA Leukoctes 70 Kareem/uL Last Edit by Erica Zambrano CMA on 07/17/23 12: UA Nitrite Negative Last Edit by Erica Zambrano, CHIRAG on 07/17/23 12: UA Urobilinogen 0.2 mg/dL Last Edit by Erica Zambrano, CHIRAG on 07/17/23 12: UA Protein 0 mg/dL Last Edit by Erica Zambrano, CHIRAG on 07/17/23 12:26 UA pH 5.5 Last Edit by Erica Zambrano, CHIRAG on 07/17/23 12:26 UA Blood 0 Tyrel/uL Last Edit by Erica Zambrano, CHIRAG on 07/17/23 12: UA Specific [place] 1.025 Last Edit by Erica Zambrano, CHIRAG on 07/17/23 12: UA Ketone Positive Last Edit by Erica Zambrano CMA on 07/17/23 12: UA Bilirubin 0 mg/dL Last Edit by Erica Zambrano, CHIRAG on 07/17/23 12: UA Glucose 0 mg/dL Last Edit by Erica Zambrano CMA on 07/17/23 12:26 Results Reviewed Results Reviewed: Laboratory Last Values Urine pH (Auto) 5.5 07/17/23 12:24 Specific [place] (Auto) 1.025 07/17/23 12:24 Urine Protein (Auto) 0 mg/dL 07/17/23 12:24 Glucose (UA)(Auto) 0 mg/dL 07/17/23 12:24 Urine Ketones (Auto) Positive 07/17/23 12:24 Urine Blood (Auto) 0 Tyrel/uL 07/17/23 12:24 Urine Nitrite (Auto) Negative 07/17/23 12:24 Urine Bilirubin (Auto) 0 mg/dL 07/17/23 12:24 Urine Urobilinogen (Auto) 0.2 mg/dL 07/17/23 12:24 Leukocyte Esterase (Auto) 70 Kareem/uL 07/17/23 12:24 Assessment & Plan Assessment & Plan (1) Urinary tract infection: Code(s): N39.0 - Urinary tract infection, site not specified Qualifiers: Urinary tract infection type: acute cystitis Hematuria presence: without hematuria Qualified Code(s): N30.00 - Acute cystitis without hematuria Plan: Will treat with Cefuroxime - patient treated with this about 4 months ago for UTI and did well on this w/o side effects. Has pyridium at home and declines need. We reviewed importance of increased hydration. She may take Tylenol/Motrin as needed for symptom management. If she does not improve with treatment, or if symptoms worsen/new symptoms develop, she should return to the clinic for further evaluation. She verbalizes understanding and agrees to plan. Orders: Orders AMB Urinalysis Dipstick Today Z13.9 - Encounter for screening, unspecified AMB Urinalysis Automated Today Z13.9 - Encounter for screening, unspecified Medications: New cefuroxime axetil 250 mg PO BID 7 days 14 tabs 0RF N39.0 - Urinary tract infection, site not specified Discontinued nitrofurantoin monohyd/m-cryst 100 mg (Macrobid) must administer with a meal/food Discontinued Reason: Patient no longer taking 100 mg PO BID 14 caps 0RF cefuroxime axetil Discontinued Reason: Patient no longer taking 250 mg PO BID 7 days 14 tabs 0RF Coding Level of Care Code Est Pt Level 4 (92598) Diagnoses Acute cystitis without hematuria N30.00 Urinary tract infection type: acute cystitis Hematuria presence: without hematuria
== END 2023-07-17 12:43 | disposition home or self-care (01) ==
PROVIDERS: PCP Nurse Practitioner Family; Visit Provider Nurse Practitioner Family
DX: N30.00 Acute cystitis without hematuria (principal)
CPT/HCPCS: 81003; 99214

== ENCOUNTER 2023-10-17 09:10 | Outpatient (AMB) | payer OTHER, SELFPAY ==
--- NOTE | 2023-10-17 09:14 | AM.OFFWIN_ITS ---
Intake Vital Signs 10/17/23 09:21 Height 5 ft 2 in Weight 155 lb BMI 28.3 BP 122/80 Blood Pressure Location Lt brachial Pulse 74 Pulse Source Pulse Oximeter Pulse Oximetry (%) 98 Oxygen Delivery Method Room Air Intake Visit Reasons: EP /UTI Intake Note: Patient here for UTI symptoms that started yesterday. Patient Tobacco Use Status: Current everyday Tobacco user Allergies prednisone Allergy (Unknown, Uncoded 10/17/23 09:20) severe headache sunflower seeds Allergy (Unknown, Uncoded 10/17/23 09:20) oral swelling Medication List - Last Reconciled 10/17/23 by WILFRID Bobby semaglutide 2 mg subcut QWEEK Do you need a note to return to daycare/school/sports/work: No HPI HPI Comments History of Present Illness0 Details Pleasant 53-year-old female here today with chief complaints of UTI. Reports that she is prone to recurrent UTIs. The last 1 in June of which she w as treated with cefuroxime with success. Today she reports that her symptoms started yesterday. Symptoms include frequency, burning and urgency. She denies fever, chills, nausea, vomiting, back pain. She is menopausal and does not get her period. Does not endorse any vaginal symptoms. Exam Awake alert oriented, no acute distress Regular rate and rhythm No CVAT bilat No suprapubic abdominal tenderness Urinalysis positive - see results below Plan Treat with nitrofurantoin for 5 days. Advised to follow up with primary care and ask about a referral to Urology to help treat the chronic and recurrent UTIs. Vaginal hygiene, liberal hydration, etc. was reviewed today along with reasons to return to the office. This note is constructed using voice recognition software. While every effort has been made to ensure accuracy in environmental tech, still errors may have been included Sometimes, these errors may affect the content or meaning of the given sentence . FORMERLY [facility], [facility]–1983 Medical History (Updated 10/17/23 @ 09:48 by WILFRID Bobby) UTI (urinary tract infection) Anxiety Obesity Surgical History Hx of laparoscopic gastric banding Social History Alcohol intake: never Patient Tobacco Use Status: Current everyday Tobacco user Physical Exam Vital Signs: Last Vital Signs Pulse 74 10/17/23 09:21 BP 122/80 10/17/23 09:21 Pulse Ox 98 10/17/23 09:21 Oxygen Delivery Method Room Air 10/17/23 09:21 BMI result Body Mass Index 28.3 Results AMB Urinalysis, Automated UA Leukoctes 125 Kareem/uL Last Edit by SHYAM Uriarte on 10/17/23 09: 37 UA Nitrite Negative Last Edit by Oneil Wade CCM on 10/17/23 09:37 UA Urobilinogen 0.2 mg/dL Last Edit by Oneil Wade CCM on 10/17/23 09:37 UA Protein 0 mg/dL Last Edit by Oneil Wade [facility] on 10/17/23 09:37 UA pH 6.0 Last Edit by Oneil Wade [facility] on 10/17/23 09:37 UA Blood 200 Tyrel/uL Last Edit by Oneil Wade CCM on 10/17/23 09:37 UA Specific [place] 1.005 Last Edit by Oneil Wade [facility] on 10/17/23 09:37 UA Ketone Negative Last Edit by SHYAM Uriarte on 10/17/23 09:37 UA Bilirubin 0 mg/dL Last Edit by Oneil Wade CCM on 10/17/23 09:37 UA Glucose 0 mg/dL Last Edit by Oneil Wade [facility] on 10/17/23 09:37 Results Reviewed Results Reviewed: Laboratory Last Values Urine pH (Auto) 6.0 10/17/23 09:36 Specific [place] (Auto) 1.005 10/17/23 09:36 Urine Protein (Auto) 0 mg/dL 10/17/23 09:36 Glucose (UA)(Auto) 0 mg/dL 10/17/23 09:36 Urine Ketones (Auto) Negative 10/17/23 09:36 Urine Blood (Auto) 200 Tyrel/uL 10/17/23 09:36 Urine Nitrite (Auto) Negative 10/17/23 09:36 Urine Bilirubin (Auto) 0 mg/dL 10/17/23 09:36 Urine Urobilinogen (Auto) 0.2 mg/dL 10/17/23 09:36 Leukocyte Esterase (Auto) 125 Kareem/uL 10/17/23 09:36 Assessment & Plan Assessment & Plan (1) UTI (urinary tract infection): Code(s): N39.0 - Urinary tract infection, site not specified Qualifiers: Urinary tract infection type: acute cystitis Hematuria presence: with hematuria Qualified Code(s): N30.01 - Acute cystitis with hematuria Plan: . Plan . Orders: Orders AMB Urinalysis Automated Today Z13.9 - Encounter for screening, unspecified Medications: New nitrofurantoin monohyd/m-cryst 100 mg must administer with a meal/food 100 mg PO Q12H 5 days 10 caps 0RF Coding Level of Care Code Est Pt Level 4 (04123) Diagnoses Acute cystitis with hematuria N30.01 Urinary tract infection type: acute cystitis Hematuria presence: with hematuria
[2023-10-17 09:21] VITALS: BP 122/80; PULSE 74; O2SAT 98; BMI 28.3
== END 2023-10-17 09:48 | disposition home or self-care (01) ==
PROVIDERS: PCP Nurse Practitioner Family; Visit Provider Nurse Practitioner Family
DX: Z13.9 Encounter for screening, unspecified (principal); N30.01 Acute cystitis with hematuria
CPT/HCPCS: 81003; 99214

== ENCOUNTER 2024-07-07 08:34 | Outpatient (REF) | payer OTHER, SELFPAY ==
--- NOTE | ~2024-07-07 | XR_ITS ---
EXAMINATION: XR ANKLE 3 OR MORE VIEWS RIGHT HISTORY: M25.579 - Pain in unspecified ankle and joints of unspecified foot COMPARISON: There are no prior studies available for direct comparison. The report from a prior study dated 05/18/2006 was reviewed which described an old fracture of the distal fibula. FINDINGS: Three views of the right ankle are submitted. Osseous mineralization is normal. There is a nondisplaced fracture of the medial malleolus. An osseous density adjacent to the dorsal aspect of the talus may represent an avulsion fracture fragment. There is an old healed fracture deformity of the distal fibula. The joint spaces are preserved. The soft tissues are unremarkable. XR/XR ankle RT min 3V IMPRESSION: Nondisplaced fracture of the medial malleolus. Possible avulsion fracture of the dorsal aspect of the talus. Electronically signed by: Nate Martinez MD 07/07/2024 01:31 PM EDT
--- OUTSIDE RECORDS SUMMARY | 2024-07-07 09:04 | XMS_ITS | Patient Health Record ---
Author Organization [facility] Address [address] [place] [id number] Care Team Providers Care Batter Out Name Role Phone Calvin Bhakta MD Primary Care Provider Unavailab Nate Hernandez Unavailable [phone] Alice Hdz Unavailable Unavailable Allergies Allergen (clinical drug ingredient) Drug/Non Drug Allergy documented on EMR Reaction Allergy Type Onset Date Status PredniSONE Unknown Drug Allergy Active Reason For Referral No Information Medications Medication SIG (Take, Route, Frequency, Duration) Notes Start Date End Date Status Sertraline HCl 50 MG TAKE 1 TABLET BY MO UTH EVERY DAY Oral for 30 Active Nasonex 50 MCG/ACT USE 2 SPRAYS IN EACH NOSTRIL DAILY NEEDED FOR ALLERGY SYMPTOMS Nasal for 30 Active clonazePAM 1 MG TAKE 1 TABLET BY ISREAL TH AT BEDTIME Oral for 30 Active Pantoprazole Sodium 40 MG 1 tablet Orall y BID for 30 Active busPIRone HCl 30 MG TAKE 1 TABLET BY ISREAL TH TWICE A DAY Oral for 30 Active LORazepam 0.5 MG TAKE 1 TABLET BY SIREAL TH 3 TIMES A DAY NEEDED FOR ANXIETY Oral for 4 Active oxyCODONE-Acetaminophen 5-325 MG take 2 tablets by mouth every 4 hours if needed for MODEARTE PAIN Oral for 5 Active Problems Problem Type SNOMED Code ICD Code Onset Dates Problem Status W/U Status Risk Notes Problem Constipation (08633822) Constipation (564.00) Active confirmed Problem Gastroesophageal reflux disease (576314758) GERD (gastroesophage al reflux disease) (530.81) Active confirmed Problem Colitis (57304517) Colitis (558.9) Active confi rmed Plan Of Treatment Pending Test Test Name Order Date BUN 11/16/2013 CREATININE 11/16/2013 CT ABD ARTERIOGRAM 11/16/2013 CT ABD ARTERIOGRAM 07/26/2013 XR BARIUM SWALLOW-ESOPHAGUS 01/23/2014 Insurance Providers Payer Name Payer Address Payer Phone Subscriber Number Group Number Insured Name Patient Relationship to Insured Coverage Start Date Coverage End Date [employer] [address] [place] [address] [id number] SAAD JASMINE Self - patient is the insured Medical (General) History Medical History History ICD Code Denies UT,DM,CVA,Lung disease,renal dise ase GERD --EGD 11/2012 at [facility]--told of andres agitis-started on Protonix Anxiety/Depression ischemic colitis--confirmed by CAT scan, colonoscopy, and biopsy in May of 2013--she had CAT scan evidence of probable ischemic colitis in 2009, but never had a GI evaluation--the colonoscopy in May 2013 showed the area to be involving a segment of the distal transverse colon Surgical History Surgery Date(Month/Year) Large retroperitoneal cyst r emoval-07/22/[address] Hdz at [facility]--done laparoscopically--pathology was benign Gastric lap-band in 2006-Dr. Mayes
== END 2024-07-07 08:35 | disposition home or self-care (01) ==
LOC: HO.HOSX 08:34
PROVIDERS: Visit Provider Physician Assistant
DX: M25.571 Pain in right ankle and joints of right foot (principal)
CPT/HCPCS: 73610

== ENCOUNTER 2024-07-07 12:21 | Outpatient (AMB) | payer OTHER, SELFPAY ==
--- NOTE | 2024-07-07 12:52 | A.OFFVIS_ITS ---
Vital Signs 07/07/24 12:58 Height 5 ft 2 in Weight 140 lb BMI 25.6 Intake Visit Reasons: FC- RT transvered nondisplaced distal fibular fx Intake Note: Selin is a 54 year old female who presents with a wheel chair and her daughter and her sister today for a evaluation of her right , DOI 06/30/24 Patient reports she was stepping down on a crib tripped and fell in a hole. She started to have sharp pain after the injury. Patient was placed in a tall walking boot. She also informed me that her pain is more located on the of the ankle. Patient has tried Tylenol with no relief. Allergies prednisone Allergy (Unknown, Uncoded 10/17/23 09:20) severe headache sunflower seeds Allergy (Unknown, Uncoded 10/17/23 09:20) oral swelling HPI HPI FC- RT transvered nondisplaced distal fibular fx: Details: Patient is a 54-year-old female who presents to the office today for evaluation of a left distal fibular fracture. Date of injury was 06/30/2024 when she was stepping off of a curb and fell into a hole. She developed sharp pain and immediate swelling to the right ankle after the injury. She was on vacation during this injury in [place] and was seen after the injury and provided with a tall walking boot. 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 Review of Systems Const All systems reviewed & are unremarkable except as noted in HPI and below Physical Exam Vital Signs: BMI result Body Mass Index 25.6 Const General: cooperative, healthy appearing and no acute distress Resp Effort & Inspection: normal respiratory effort and able to speak in complete sentences Cardio Rate: regular rate Peripheral pulses: Peripheral pulses 2+ throughout Skin Lesions: no lesions Rashes: no rashes Extrem Other: Right foot diffuse ecchymosis along the dorsal aspect of the foot at the base of the toes as well as the plantar aspect in the arch and lateral aspect of the foot. Tenderness to palpation at the distal fibula over the fracture site. Able to slightly dorsiflex and plantar flex but it is limited due to pain. Sensation is intact. Pedal pulse intact. Office Procedures AMB Fracture Care Fracture Billing Code: Fracture Billing Code Assessment & Plan Assessment & Plan (1) Fracture of distal end of right fibula: Code(s): S82.831A - Other fracture of upper and lower end of right fibula, initial encounter for closed fracture Category: Medical Plan Patient is a 54-year-old female who presents to the office today for evaluation of a left distal fibular fracture. Date of injury was 06/30/2024 when she was stepping off of a curb and fell into a hole. She developed sharp pain and immediate swelling to the right ankle after the injury. She was on vacation during this injury in [place] and was seen after the injury and provided with a tall walking boot. While in the office today the patient was placed back into a tall walking boot. She may weight bear as tolerated. I have also placed an order for physical therapy to work on gentle range of motion and gait training while in the boot. I would like to re-evaluate her with repeat x-rays in 4 weeks, sooner if needed. X-rays of the right ankle which were obtained while in the office today and were reviewed by me, Mariam Del Cid PA-C, revealed distal fibular fracture. Orders: Orders XR ankle RT min 3V Today M25.579 - Pain in unspecified ankle and joints of unspecified foot Coding Level of Care Code New Pt Level 4 (11978) Diagnoses Fracture of distal end of right fibula S82.831A CPT Codes Fracture Care - Fracture Billing Code: Fracture Billing Code ([id number])
[2024-07-07 12:58] VITALS: BMI 25.6
== END 2024-07-07 13:37 | disposition home or self-care (01) ==
LOC: HO.HOS 12:22
PROVIDERS: PCP Nurse Practitioner Family; Visit Provider Physician Assistant
DX: S82.831A Other fracture of upper and lower end of right fibula, initial encounter for closed fracture (principal)
CPT/HCPCS: 99203

== ENCOUNTER → 2024-07-07 12:24 | Outpatient (BNV) | payer OTHER, SELFPAY | PROVIDERS: Visit Provider Radiology Diagnostic Radiology | DX: S82.54XA Nondisplaced fracture of medial malleolus of right tibia, initial encounter for closed fracture (principal) | CPT/HCPCS: 73610 ==

== ENCOUNTER 2024-08-04 12:07 | Outpatient (REF) | payer OTHER, SELFPAY ==
--- NOTE | ~2024-08-04 | XR_ITS ---
EXAMINATION: XR ANKLE 3 OR MORE VIEWS RIGHT HISTORY: M25.579 - Pain in unspecified ankle and joints of unspecified foot COMPARISON: Comparison is made with the prior examination dated 07/07/2024. FINDINGS: Three views of the right ankle are submitted. Osseous mineralization is normal. Again seen is a nondisplaced transverse fracture of the distal fibula. The fracture margins are slightly blurred, consistent with healing. There is callus formation noted at the site of the previously seen dorsal anterior talus fracture consistent with healing. The joint spaces are preserved. The soft tissues are unremarkable. XR/XR ankle RT min 3V IMPRESSION: Healing fractures of the distal fibula and anterior talus. Electronically signed by: Nate Martinez MD 08/04/2024 02:06 PM EDT
--- OUTSIDE RECORDS SUMMARY | 2024-08-08 12:39 | XMS_ITS | Patient Health Record ---
Author Organization [facility] Address [address] [place] [address] Care Team Providers Care Multimedia Project Manager Name Role Phone Calvin Bhakta MD Primary Care Provider Unavailab Nate Hernandez Unavailable [phone] Alice Hdz Unavailable Unavailable Allergies Allergen (clinical [...] Status W/U Status Risk Notes Problem Constipation (564.00) Active confirmed Problem Gastroesophageal reflux disease (593650934) GERD (gastroesophage al reflux disease) (530.81) Active confirmed Problem Colitis (97925304) Colitis (558.9) Active confi rmed Plan Of Treatment Pending Test Test Name Order Date BUN 11/16/2013 CREATININE 11/16/2013 CT ABD ARTERIOGRAM 07/26/2013 CT ABD ARTERIOGRAM 11/16/2013 XR BARIUM SWALLOW-ESOPHAGUS 01/23/2014 Insurance Providers Payer Name Payer Address Payer Phone Subscriber Number Group Number Insured Name Patient Relationship to Insured Coverage Start Date Coverage End Date JASON [address] [place] [address] [id number] SAAD JASMINE Self - patient is the insured Medical (General) History Medical History History ICD Code Denies [place],DM,CVA,Lung disease,renal dise ase GERD --EGD 11/2012 at [facility]--told of esoph agitis-started on Protonix Anxiety/Depression ischemic colitis--confirmed by CAT scan, colonoscopy, and biopsy in May of 2013--she had CAT scan evidence of probable ischemic colitis in 2009, but never had a GI evaluation--the colonoscopy in May 2013 showed the area to be involving a segment of the distal transverse colon Surgical History Surgery Date(Month/Year) Large retroperitoneal cyst r emoval-07/22/[address] Hdz at [facility]--done laparoscopically--pathology was benign Gastric lap-band in 2006-Dr. Mayes
--- OUTSIDE RECORDS SUMMARY | 2024-08-08 12:39 | XMS_ITS | Continuity of Care Document ---
Author Organization [facility] Vijay Pepe lt Address [address] [place] [address]- Care Team Providers Care Pullman Conductor Name Role Phone Chris HARRIS, Gabrielle Ramos Primary Care Physician Encounter [facility] Date(s): 07/05/24 - 08/04/24 [facility] Adult [address] [place] [address]- Encounter Type: Triage Allergies, Adverse Reactions, Alerts [...] Acel (oldterm) 3 08/17/08 Given 1Result Comment: [id number] 2Admin Note: rcvd elsewhere 3Admin Note: history Medications busPIRone 7.5 mg oral tablet 1 tablet = 7.5 mg, By Mouth, 2 times a day, # 60 tablet, 1 Refills, Maintenance, 12/08/23 8:31:00 AMEDT, [facility]/pharmacy #[id number], Partial fill upon patient request [...] 5 Refills, Maintenance, 06/16/22 4:08:00 PM EDT, [facility]/pharmacy #[id number], 06/26/22, 158, cm, 05/19/22 9:41:00 [...] Team Personnel Name: Trish Jansen RN Position: [facility] RN Member Role: Primary Care Nurse Name: Gabrielle Perez NP Position: [facility] PCO Associate Professional Member Role: PCP Address: [address] [place] [id number] Telecom: Care Team Related Persons Name: PRATIMA SIM Name: KATIE BRAY Name: GIN CRAVEN Insurance Providers Guarantor name: SAAD MITALI Health Plan Information #: 1 Payer: [facility] HMO POS Member Number: NA Policy Number: NA Group Number: NA
== END 2024-08-04 12:08 | disposition home or self-care (01) ==
LOC: HO.HOSX 12:07
PROVIDERS: Visit Provider Physician Assistant
DX: M25.571 Pain in right ankle and joints of right foot (principal)
CPT/HCPCS: 73610

== ENCOUNTER 2024-08-04 12:24 | Outpatient (AMB) | payer OTHER, SELFPAY ==
--- NOTE | 2024-08-04 12:44 | MHC.OFFVIS ---
Vital Signs 08/04/24 13:01 Height 5 ft 2 in Weight 140 lb BMI 25.6 Intake Visit Reasons: RT transvered nondisplaced distal fibular fx-w/xr Intake Note: Selin is a 54 year old female who presents with a wheel chair and her daughter and her sister today for a evaluation of her right, DOI 06/30/24. Patient reports she is doing well. She states when she is over doing it she tends to feel very sore. Allergies prednisone Allergy (Unknown, Uncoded 10/17/23 09:20) severe headache sunflower seeds Allergy (Unknown, Uncoded 10/17/23 09:20) oral swelling HPI HPI RT transvered nondisplaced distal fibular fx-w/xr: Details: Ms. Koo is a 54-year-old female who presents to the office today for routine follow-up of a right nondisplaced distal fibular fracture that she sustained on 06/30/2024. Her last appointment was on 07/07/2024 with wi and it was recommended that she continue using the tall walking boot to assist with ambulation. She was able to weightbear as tolerated and a physical therapy order has been generated at that time. Unfortunately, physical therapy has not begun and she does not have an appointment until August 16 with core physical therapy and [facility]. She has developed some stiffness in the right ankle after being immobilized in the boot. She has been working on dorsi and plantar flexion but is mainly stiff with inversion and eversion. 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 Mild circumferential edema at the ankle. Mild tenderness to palpation at the distal fibula over the fracture site. Able to demonstrate full dorsiflexion and plantar flexion. Stiffness with inversion and eversion. Sensation is intact. Pedal pulse intact. Assessment & Plan Assessment & Plan (1) Fracture of distal end of right fibula: Code(s): S82.831A - Other fracture of upper and lower end of right fibula, initial encounter for closed fracture Category: Medical Plan Ms. Koo is a 54-year-old female who presents to the office today for routine follow-up of a right nondisplaced distal fibular fracture that she sustained on 06/30/2024. Her last appointment was on 07/07/2024 with me and it was recommended that she continue using the tall walking boot to assist with ambulation. She was able to weightbear as tolerated and a physical therapy order has been generated at that time. Unfortunately, physical therapy has not begun and she does not have an appointment until August 16 with core physical therapy and [facility]. She has developed some stiffness in the right ankle after being immobilized in the boot. She has been working on dorsi and plantar flexion but is mainly stiff with inversion and eversion. While in the office today, we have reached out to core Physical therapy requesting an urgent appointment for this patient to begin working on range of motion. I would like for her to DC the boot at this time and transition to a supportive walking sneaker. I would like to see her in 6 weeks with repeat x-rays, sooner if needed. X-rays of the right ankle which were obtained while in the office today and were reviewed by me, Mariam Del Cid PA-C, revealed routine healing distal fibular fracture. There is also routine healing of the small avulsion fracture off of the talus. Orders: Orders XR ankle RT min 3V Today M25.579 - Pain in unspecified ankle and joints of unspecified foot Coding Level of Care Code Global (98310) Diagnoses Fracture of distal end of right fibula S82.831A
[2024-08-04 13:01] VITALS: BMI 25.6
--- OUTSIDE RECORDS SUMMARY | 2024-08-04 13:11 | XMS_ITS | Patient Health Record ---
Author Organization [facility] Address [address] [place] [address] Care Team Providers Care School Business Manager Name Role Phone Calvin Bhakta MD Primary Care Provider Unavailab Nate Hernandez Unavailable [phone] Alice Hdz Unavailable Unavailable Allergies Allergen (clinical [...] LORazepam 0.5 MG TAKE 1 TABLET BY ISREAL TH 3 TIMES A DAY NEEDED FOR ANXIETY Oral for 4 Active oxyCODONE-Acetaminophen 5-325 MG take 2 tablets by mouth every 4 hours if needed for MODEARTE PAIN Oral for 5 Active Problems Problem Type SNOMED Code ICD Code Onset Dates Problem Status W/U Status Risk Notes Problem Constipation (86915063) Constipation (564.00) Active confirmed Problem Gastroesophageal reflux disease (582456405) GERD (gastroesophage al reflux disease) (530.81) Active confirmed Problem Colitis (05602451) Colitis (558.9) Active confi rmed Plan Of Treatment Pending Test Test Name Order Date BUN 11/16/2013 CREATININE 11/16/2013 CT ABD ARTERIOGRAM 07/26/2013 CT ABD ARTERIOGRAM 11/16/2013 XR BARIUM SWALLOW-ESOPHAGUS 01/23/2014 Insurance Providers Payer Name Payer Address Payer Phone Subscriber Number Group Number Insured Name Patient Relationship to Insured Coverage Start Date Coverage End Date [employer] [address] [place] [address] [id number] SAAD JASMINE Self - patient is the insured Medical (General) History Medical History History ICD Code Denies HI,DM,CVA,Lung disease,renal dise ase GERD --EGD 11/2012 at [facility]--told of andres agitis-started on Protonix Anxiety/Depression ischemic [...] cyst r emoval-07/22/[address] Hdz at [facility]--done laparoscopically--pathology was benign Gastric lap-band in 2006-Dr. Mayes
--- OUTSIDE RECORDS SUMMARY | 2024-08-04 13:11 | XMS_ITS | Continuity of Care Document ---
Author Organization [facility] Address [address] [place] [address]- Care Team Providers Care Biochemist Name Role Phone Chris HARRIS, Gabrielle Ramos Primary Care Physician [place] [facility] [place] 07/30/24 [facility] [address] [place] [address]- Encounter Type: Triage Allergies, Adverse Reactions, Alerts Substance Criticality Severity Reaction Reaction Severity Status predniSONE HEADACHES Active Seeds angioedema Active Other Food Allergy hives, li ps swells,tonugue swells SUNFLOWER SEEDS Active Immunizations Given and Recorded Vaccine Date Status Refusal Reason influenza virus vaccine, inactivated 12/11/22 Give n influenza virus vaccine, inactivated 01/09/21 Jean rded influenza virus vaccine, inactivated 06/09/13 Jean rded influenza virus vaccine, inactivated 12/20/08 Give n SARS-CoV-2 (COVID-19) mRNA BNT-162b2 vac 05/12/20 Recorded SARS-CoV-2 (COVID-19) mRNA BNT-162b2 vac 05/12/20 Recorded SARS-CoV-2 (COVID-19) mRNA BNT-162b2 vac 04/21/20 Recorded SARS-CoV-2 (COVID-19) mRNA BNT-162b2 vac 04/21/20 Recorded Influenza Virus Vaccine (oldterm) 01/05/20 Recorde d tetanus-diphtheria toxoids (Td) 1 03/04/19 Given influ virus vac, H1N1, inactive(oldterm) 2 05/28/13 Given FluLaval (oldterm) 01/18/10 Given Pneumococcal Vaccine (oldterm) 12/20/08 Given Diphtheria/Tet/Pertussis, Acel (oldterm) 3 08/17/08 Given 1Result Comment: [id number] 2Admin Note: rcvd elsewhere 3Admin Note: history Medications busPIRone 7.5 mg oral tablet 1 tablet = 7.5 mg, By Mouth, 2 times a day, # 60 tablet, 1 Refills, Maintenance, 12/08/23 8:31:00 [place], [facility]/pharmacy #[id number], Partial fill upon patient request if the prescription is for a schedule IIopioid drug., 158, cm, 12/08/23 8:16:00 EDT, Height, 72, kg, 05/19/22 8:08:00 EST, Dry Weight Start Date: 12/08/23 Status: Ordered Quantity: 60.0 Unit: tablet Repeat number: 2 LORazepam 0.5 mg oral tablet 1 tablet, By Mouth, 2 times a day, PRN NEEDED FOR ANXIETY, MAXIMUM 10 TABLETS PER MONTH., # 10 tablet, 5 Refills, Maintenance, 06/16/22 4:08:00 PM EDT, [facility]/pharmacy #[id number], 06/26/22, 158, cm, 05/19/22 9:41:00 EST, Height, 72, kg, 05/19/22 8:08:00 EST, Dry Weight Start Date: 06/16/22 Stop Date: 12/13/22 Status: Ordered Quantity: 10.0 Unit: tablet Repeat number: 6 Tylenol Caplet = 650 mg, By Mouth, Every 4 hours, 0 Refills, Maintenance, 11/05/20 2:49:00 PM EDT, Partial fill upon patient request if the prescription is for a schedule II opioid drug. Start Date: 11/05/20 Status: Ordered Repeat number: 1 Vitamin B-12 1000 mcg oral tablet 1 tablet = 1,000 mcg, By Mouth, Daily, # 30 tablet, 0 Refills, Maintenance, 07/15/13 12:49:47 PM EDT, Tablet Start Date: 07/15/13 Status: Ordered Quantity: 30.0 Unit: tablet Repeat number: 1 Problem List Condition Confirmation Course Effective Dates Status Health St atus Informant Agoraphobia Confirmed Active Chronic recurrent sinusitis Confirmed Active Fibromyalgia Confirmed Active GERD (gastroesophageal reflux disease) Confirmed Active Insomnia Confirmed Active IBS (irritable bowel syndrome) Confirmed Active Hot flashes due to menopause Confirmed Active Mild major depression Confirmed Active Pulmonary nodule 1 Confirmed Active Panic disorder Confirmed Active Smoking Confirmed Active 15mm Social History Social History Type Response Smoking Status 5-9 cigarettes (betw een 1/4 to 1/2 pack)/day in last 30 days; Other: started teenager, avg 1/2ppd; entered on: 12/03/20 Sex Sex Representation Female (finding) Patient Care team information Care Team Personnel Name: Trish Jansen RN Position: [facility] RN Member Role: Primary Care Nurse Name: Gabrielle Perez NP Position: [facility] PCO Associate Professional Member Role: PCP Address: [address] [place] [address] Telecom: Care Team Related Persons Name: PRATIMA SIM Name: KATIE BRAY Name: GIN CRAVEN Insurance Providers Guarantor name: SAAD MITALI Health Plan Information #: 1 Payer: CIG HMO POS Member Number: NA Policy Number: NA Group Number: NA
--- OUTSIDE RECORDS SUMMARY | 2024-08-04 13:11 | XMS_ITS | Continuity of Care Document ---
Author Organization [facility] Vijay Pepe lt Address [address] [place] [address]- Care Team Providers Care Dishtank Operator Name Role Phone Chris HARRIS, Gabrielle Ramos Primary Care Physician Encounter [facility] Date(s): 07/03/24 - 08/02/24 [facility] Adult [address] [place] [address]- Encounter Type: Triage Allergies, Adverse Reactions, Alerts [...] Acel (oldterm) 3 08/17/08 Given 1Result Comment: [id number] 2Admin Note: rcvd elsewhere 3Admin Note: history Medications busPIRone 7.5 mg oral tablet 1 tablet = 7.5 mg, By Mouth, 2 times a day, # 60 tablet, 1 Refills, Maintenance, 12/08/23 8:31:00 AMEDT, [facility]/pharmacy #[id number], Partial fill upon patient request if [...] 5 Refills, Maintenance, 06/16/22 4:08:00 PM EDT, [facility]/pharmacy #[id number], 06/26/22, 158, cm, 05/19/22 9:41:00 EST, [...] Team Personnel Name: Trish Jansen RN Position: [facility] RN Member Role: Primary Care Nurse Name: Gabrielle Perez NP Position: [facility] PCO Associate Professional Member Role: PCP Address: [address] [place] [id number] Telecom: Care Team Related Persons Name: PRATIMA SIM Name: KATIE BRAY Name: GIN CRAVEN Insurance Providers Guarantor name: SAAD MITALI Health Plan Information #: 1 Payer: CIG HMO POS Member Number: NA Policy Number: NA Group Number: NA
== END 2024-08-04 13:21 | disposition home or self-care (01) ==
LOC: HO.HOS 12:24
PROVIDERS: PCP Nurse Practitioner Family; Visit Provider Physician Assistant
DX: S82.831A Other fracture of upper and lower end of right fibula, initial encounter for closed fracture (principal)
CPT/HCPCS: 99213

== ENCOUNTER → 2024-08-04 12:30 | Outpatient (BNV) | payer OTHER, SELFPAY | PROVIDERS: Visit Provider Radiology Diagnostic Radiology | DX: M25.571 Pain in right ankle and joints of right foot (principal) | CPT/HCPCS: 73610 ==

== ENCOUNTER 2024-08-25 07:00 | Outpatient (RCR) | payer OTHER, SELFPAY ==
--- NOTE | 2024-08-16 11:50 | MHC.PT.EP ---
[facility] [place] Office [place] Office [place] Office [address] Wanda Alves [address] [phone] F: [phone] F: [phone] F: [phone] F: [phone] Physical Therapy Plan of Care Date of Evaluation: 08/16/24 Date of Surgery: none Diagnosis: fracture of distal end of right fibula Assessment: Patient is a 54 year old R handed female who presents with s/s consistent with fracture of distal end of right fibula. 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 Patient past medical history includes obesity. Current impairments include pain, balance, ROM, strength, activity tolerance and functional mobility. Functional limitations include decreased ability to walk, stand, work in yard, exercise, be active and travel. Patient is motivated with good rehab potential. Skilled PT will address impairments and functional limitations in order to achieve goals. Frequency and Duration: The patient will be seen 2x/week for 5 weeks Short Term Goals: I with HEP - 2 weeks AROM WNL and pain free - 3 weeks SLB > 10 seconds - 3 weeks Prison Goals: LEFS 50/80 or better - 5 weeks Ankle strength 4+/5 grossly - 5 weeks Able to walk on beach pain free - 5 weeks Treatment Plan: Modalities to reduce pain, spasms and effusion. Manual therapy to restore motion and function. Therapeutic exercise to improve strength and flexibility. Neuromuscular re-education for posture and balance. Therapeutic activities to return to functional activities of daily living. Electronically signed by: Hussein Hernandez PT Please sign and return to therapist. Thank you for your referral.
--- NOTE | 2024-09-30 09:42 | MHC.PT.DC ---
[facility] [place] Office [place] Office [place] Office [address] Wanda Alves [address] [phone] F: [phone] F: [phone] F: [phone] F: [phone] Physical Therapy Discharge Report Diagnosis: fracture of distal end of right fibula Date of Surgery: none Date of Evaluation: 08/16/24 Date of Discharge: Treatments to Date: 2 Cancellations to Date: No Shows to Date: Discharge Status: Independent with HEP Patient Elected to Stop Discharge Summary: 08/25/24: progressing well with skilled PT. no adverse reactions. continue to progress as tolerated. Patient is a 54 year old R handed female who presents with s/s consistent with fracture of distal end of right fibula. 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 Patient past medical history includes obesity. Current impairments include pain, balance, ROM, strength, activity tolerance and functional mobility. Functional limitations include decreased ability to walk, stand, work in yard, exercise, be active and travel. Patient is motivated with good rehab potential. Skilled PT will address impairments and functional limitations in order to achieve goals. Electronically signed by: Hussein Hernandez, PT Please sign and return to therapist. Thank you for your referral.
== END 2024-09-30 09:43 | disposition home or self-care (01) ==
LOC: HO.PTCHIC 07:00
PROVIDERS: PCP Nurse Practitioner Family; Visit Provider Physician Assistant
DX: S82.831D Other fracture of upper and lower end of right fibula, subsequent encounter for closed fracture with routine healing (principal)
CPT/HCPCS: 97110; 97112; 97162

== ENCOUNTER 2024-09-08 09:08 | Outpatient (REF) | payer OTHER, SELFPAY ==
--- NOTE | ~2024-09-08 | XR_ITS ---
CLINICAL HISTORY: M25.579 - Pain in unspecified ankle and joints of unspecified foot 3 view right ankle Comparison: DX/AZ/SR - XR ANKLE RT MIN 3V - 08/04/24 12:30 EDT DX/AZ/SR - XR ANKLE RT MIN 3V - 07/07/24 12:24 EDT Findings: Healing distal left fibular fracture. There does appear to be a small area of nonunion laterally. Talar dome maintained. Osseous irregularity along the anterior aspect of the talus, possibly an old avulsion fracture. Generalized soft tissue swelling. No ankle effusion. No radiopaque foreign body. IMPRESSION: 1. Prior distal right fibular fracture with evidence of partial healing. There is a small area of nonunion laterally. No acute process. This document has been electronically signed by: Jocy Luna MD on 09/09/2024 08:57:38
== END 2024-09-08 09:09 | disposition home or self-care (01) ==
LOC: HO.HOSX 09:08
PROVIDERS: Visit Provider Physician Assistant
DX: M25.571 Pain in right ankle and joints of right foot (principal)
CPT/HCPCS: 73610

== ENCOUNTER 2024-09-08 11:22 | Outpatient (AMB) | payer OTHER, SELFPAY ==
--- NOTE | 2024-09-08 12:00 | A.OFFVIS_ITS ---
Intake Visit Reasons: OV - right distal end of fibula fx, DOI 06/30/24 Intake Note: Selin is a 54 year old female who presents with a wheel chair and her daughter and her sister today for a follow up of her right distal end of fibula fx, DOI 06/30/24. Patient reports she is doing better. She is haivng little to no pain. Allergies prednisone Allergy (Unknown, Uncoded 10/17/23 09:20) severe headache sunflower seeds Allergy (Unknown, Uncoded 10/17/23 09:20) oral swelling HPI HPI OV - right distal end of fibula fx, DOI 06/30/24: Details: Ms. Koo this is a 54-year-old female who presents to the office today for routine follow-up status post right distal fibular fracture that she sustained on 06/30/2024. Overall the patient is doing very well. She is wearing sandals while in the office today and ambulating well without pain. She does report that occasionally with standing or doing activities for long periods of time she does have a slight increase in pain. Overall she is very happy with her recovery course. No additional complaints. 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 No ecchymosis, erythema or joint effusion. Negative anterior drawer. Full range of motion in all planes. NVI. Assessment & Plan Assessment & Plan (1) Fracture of distal end of right fibula: Code(s): S82.831A - Other fracture of upper and lower end of right fibula, initial encounter for closed fracture Category: Medical Plan Ms. Koo this is a 54-year-old female who presents to the office today for routine follow-up status post right distal fibular fracture that she sustained on 06/30/2024. Overall the patient is doing very well. She is wearing sandals while in the office today and ambulating well without pain. She does report that occasionally with standing or doing activities for long periods of time she does have a slight increase in pain. Overall she is very happy with her recovery course. No additional complaints. While the office today, the patient is experiencing no pain and is resuming back to normal activities as tolerated. She did attend to physical therapy sessions with home exercise program instruction. She will continue these exercises. She will follow up PRN, sooner if needed. X-rays of the right ankle which were obtained while in the office today and were reviewed by me, Mariam Del Cid PA-C, revealed routine healing distal fibular fracture. Orders: Orders XR ankle RT min 3V Today M25.579 - Pain in unspecified ankle and joints of unspecified foot Coding Level of Care Code Global (08199) Diagnoses Fracture of distal end of right fibula S82.831A
--- OUTSIDE RECORDS SUMMARY | 2024-09-08 12:54 | XMS_ITS | Patient Health Record ---
Author Organization [facility] Address [address] [place] [address] Care Team Providers Care Button Clamper Name Role Phone Calvin Bhakta MD Primary Care Provider Unavailab Nate Hernandez Unavailable [phone] Alice Hdz Unavailable Unavailable Allergies Allergen (clinical [...] Status W/U Status Risk Notes Problem Constipation (02902878) Constipation (564.00) Active confirmed Problem Gastroesophageal reflux disease (716070611) GERD (gastroesophage al reflux disease) (530.81) Active confirmed Problem Colitis (45956219) Colitis (558.9) Active confi rmed Plan Of Treatment Pending Test Test Name Order Date BUN 11/16/2013 CREATININE 11/16/2013 CT ABD ARTERIOGRAM 07/26/2013 CT ABD ARTERIOGRAM 11/16/2013 XR BARIUM SWALLOW-ESOPHAGUS 01/23/2014 Insurance Providers Payer Name Payer Address Payer Phone Subscriber Number Group Number Insured Name Patient Relationship to Insured Coverage Start Date Coverage End Date C[employer] [address] [place] [address] [id number] SAAD JASMINE Self - patient is the insured Medical (General) History Medical History History ICD Code Denies [place],DM,CVA,Lung disease,renal dise ase GERD --EGD 11/2012 at [facility]--told of andres agitis-started on Protonix Anxiety/Depression ischemic [...] cyst r emoval-07/22/[address] Hdz at [facility]--done laparoscopically--pathology was benign Gastric lap-band in 2006-Dr. Mayes
== END 2024-09-08 12:11 | disposition home or self-care (01) ==
LOC: HO.HOS 11:22
PROVIDERS: PCP Nurse Practitioner Family; Visit Provider Physician Assistant
DX: S82.831A Other fracture of upper and lower end of right fibula, initial encounter for closed fracture (principal)
CPT/HCPCS: 99213

== ENCOUNTER → 2024-09-08 11:45 | Outpatient (BNV) | payer OTHER, SELFPAY | PROVIDERS: Visit Provider Radiology Diagnostic Radiology | DX: S82.831D Other fracture of upper and lower end of right fibula, subsequent encounter for closed fracture with routine healing (principal) | CPT/HCPCS: 73610 ==

== ENCOUNTER 2024-10-28 09:23 | Outpatient (AMB) | payer OTHER, SELFPAY ==
--- OUTSIDE RECORDS SUMMARY | 2024-10-28 09:30 | XMS_ITS | Patient Health Record ---
Author Organization [facility] Address [address] [place] [address] Care Team Providers Care Kersey Department Supervisor Name Role Phone Calvin Bhakta MD Primary Care Provider Unavailab Nate Hernandez Unavailable [phone] Alice Hdz Unavailable Unavailable Allergies Allergen (clinical [...] Status W/U Status Risk Notes Problem Constipation (35057927) Constipation (564.00) Active confirmed Problem Gastroesophageal reflux disease (024963736) GERD (gastroesophage al reflux disease) (530.81) Active confirmed Problem Colitis (66393790) Colitis (558.9) Active confi rmed Plan Of Treatment Pending Test Test Name Order Date BUN 11/16/2013 CREATININE 11/16/2013 CT ABD ARTERIOGRAM 07/26/2013 CT ABD ARTERIOGRAM 11/16/2013 XR BARIUM SWALLOW-ESOPHAGUS 01/23/2014 Insurance Providers Payer Name Payer Address Payer Phone Subscriber Number Group Number Insured Name Patient Relationship to Insured Coverage Start Date Coverage End Date C[employer] [address] [place] [address] [phone] [id number] SAAD JASMINE Self - patient is the insured Medical (General) History Medical History History ICD Code Denies [place],DM,CVA,Lung disease,renal dise ase GERD --EGD 11/2012 at [facility]--told of andres agitis-started on Protonix [...] cyst r emoval-07/22/[address] Hdz at [facility]--done laparoscopically--pathology was benign Gastric lap-band in 2006-Dr. Mayes
--- NOTE | 2024-10-28 10:12 | MHC.OFFWIV ---
Intake Vital Signs 10/28/24 10:13 Height 5 ft 2 in Weight 141 lb BMI 25.8 BP 110/72 Blood Pressure Location Lt brachial Position Sitting Pulse 76 Pulse Source Pulse Oximeter Temp 98.1 F Temp Source Oral Pulse Oximetry (%) 98 Oxygen Delivery Method Room Air Intake Visit Reasons: EP-uti & sinus infection Intake Note: presents with sinus pain/pressure and congestion. Also c/o back pain and burning with peeing; h/o UTI's- Patient Tobacco Use Status: Current everyday Tobacco user Allergies prednisone Adverse Reaction (Severe, Verified 10/28/24 10:14) Headache sunflower seed Adverse Reaction (Intermediate, Verified 10/28/24 10:14) Swelling Do you need a note to return to daycare/school/sports/work: No HPI EP-uti & sinus infection HPI Details This is a 54-year-old female patient who has 2 primary complaints today. She has had what she describes as a sinus infection, for the last 6 days. She reports sinus pressure/pain, productive cough. Denies any fevers/chills, GI symptoms. Denies any known exposure to sick contacts. She also reports feeling like she has a UTI starting. She does get frequent UTIs, and this feels consistent with that. She has some urinary burning and frequency. Denies any flank pain. 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 Review of Systems Const All systems reviewed & are unremarkable except as noted in HPI and below Physical Exam Vital Signs: Last Vital Signs Temp 98.1 F 10/28/24 10:13 Pulse 76 10/28/24 10:13 BP 110/72 10/28/24 10:13 Pulse Ox 98 10/28/24 10:13 Oxygen Delivery Method Room Air 10/28/24 10:13 BMI result Body Mass Index 25.8 Const General: cooperative, healthy appearing, comfortable and no acute distress HEENT Head: Yes normal to inspection and Yes normocephalic Ears: hearing grossly normal bilaterally, external ears normal and TM's normal bilaterally General nose exam: Normal external nose present Face and sinus: Yes normal facial exam and Yes sinus tenderness (frontal/maxillary) Mouth: Normal oral and palatal mucosa present Throat: Yes posterior oropharynx normal Neck Neck: Yes no lymphadenopathy Resp Effort & Inspection: normal respiratory effort Auscultation: clear to auscultation bilaterally Cardio Rate: regular rate Rhythm: regular rhythm Skin General skin exam: no rashes or lesions noted Extrem General: Yes capillary refill normal and Yes no clubbing, cyanosis or edema Psych Appearance: grossly normal Mental Status: mental status grossly normal Speech and movement: Normal speech and movement present Assessment & Plan Assessment & Plan (1) UTI (urinary tract infection): Code(s): N39.0 - Urinary tract infection, site not specified Qualifiers: Urinary tract infection type: acute cystitis Hematuria presence: with hematuria Qualified Code(s): N30.01 - Acute cystitis with hematuria Plan: Will start her on Cefuroxime x5 days. We reviewed indications, use, possible side effects of medication. This may also provide benefit for her sinusitis. We discussed increasing fluid intake. She has cryb-uaz-huqoimd AZO and Tylenol for symptom management as needed. (2) Acute sinusitis: Code(s): J01.90 - Acute sinusitis, unspecified Qualifiers: Sinusitis location: frontal Recurrence: non-recurrent Qualified Code(s): J01.10 - Acute frontal sinusitis, unspecified Plan: Treatment as above. Advised she try an otc decongestant for management of her sinus symptoms. If she does not improve with either of these issues, or if symptoms worsen, she can return to the clinic for further evaluation. Patient verbalizes understanding and agrees to plan. Orders: Orders AMB Urinalysis Automated Today Z13.9 - Encounter for screening, unspecified Medications: New cefuroxime axetil 500 mg PO BID 10 tabs 0RF 5 days N30.01 - Acute cystitis with hematuria Coding Level of Care Code Est Pt Level 4 (84707) Diagnoses Acute cystitis with hematuria N30.01 Urinary tract infection type: acute cystitis Hematuria presence: with hematuria Acute non-recurrent frontal sinusitis J01.10 Sinusitis location: frontal Recurrence: non-recurrent
[2024-10-28 10:13] VITALS: BP 110/72; PULSE 76; TEMP 36.7; O2SAT 98; BMI 25.8
== END 2024-10-28 10:54 | disposition home or self-care (01) ==
PROVIDERS: Visit Provider Nurse Practitioner Family
DX: N30.01 Acute cystitis with hematuria (principal); J01.10 Acute frontal sinusitis, unspecified; Z13.9 Encounter for screening, unspecified

== ENCOUNTER → 2024-10-28 09:23 | Outpatient (BNVA) | payer OTHER, SELFPAY | PROVIDERS: Visit Provider Nurse Practitioner Family | DX: N30.01 Acute cystitis with hematuria (principal); J01.10 Acute frontal sinusitis, unspecified | CPT/HCPCS: 81003 ==